=== PATIENT | female | born 1935 | race Caucasian/White ===

== ENCOUNTER → 2016-08-11 | Outpatient (CLI) | payer OTHER ==
[~2016-08-11] MED LIST: CARV6.25 PO; CLOP1TAB5 PO; HYDR25TA5 PO; INSU0.01 SC; INSUINJ14 SC; LEVO125T5 PO; LOVA40TA3 PO; PLN25 PO; PRED1SUS3 OPR; TYLOTC500 PO; ULT/50 PO; WARF-246 PO
[2016-08-11 13:41] LABS: CALCIUM 9.5 mg/dl (8.5-10.1)
[2016-08-11 13:48] LABS: ALB/GLOB RATIO 1.3 (0.9-2); ALKALINE PHOSPHATASE 57 U/L (45-117); ALT/SGPT 25 U/L (12-78); AST/SGOT 20 U/L (15-37); BLOOD UREA NITROGEN 22 mg/dl (7-18); BUN/CREATININE RATIO 18.4 (10-20); CARBON DIOXIDE 27 mmol/L (21-32); CHLORIDE 104 mmol/L (98-107); CHOLESTEROL 173 mg/dl (0-200); GLUCOSE 214 mg/dl (70-99); POTASSIUM 3.6 mmol/L (3.5-5.1); SODIUM 140 mmol/L (136-145); TRIGLYCERIDES 323 mg/dl (0-150); VERY LOW DENSITY LIPOPROT CALC 65 mg/dl
[2016-08-11 13:56] LABS: CHOLESTEROL/HDL RATIO 4.7; HDL CHOLESTEROL 37 mg/dl; LDL CHOLESTEROL CALCULATED 71 mg/dl; THYROID STIMULATING HORMONE 0.415 uIu/ml (0.300-4.500)
[2016-08-11 14:08] LABS: RATIO 10.1 mcg/mg (0-30.0)
[2016-08-11 14:14] LABS: ESTIMATED AVERAGE GLUCOSE 214 mg/dl; HA1C FLAG Normal (Normal)
== END | disposition home or self-care (01) ==
LOC: C.LABPBG 08:52
PROVIDERS: ATTEND Internal Medicine
DX: E11.49 Type 2 diabetes mellitus with other diabetic neurological complication (principal); E03.9 Hypothyroidism, unspecified; E78.5 Hyperlipidemia, unspecified; N18.3 Chronic kidney disease, stage 3 (moderate); E11.22 Type 2 diabetes mellitus with diabetic chronic kidney disease

== ENCOUNTER → 2016-11-17 | Outpatient (CLI) | payer OTHER ==
[~2016-11-17] MED LIST changes: +LEVO125T4 PO; -LEVO125T5 PO
[2016-11-17 13:30] LABS: ESTIMATED AVERAGE GLUCOSE 200 mg/dl; HA1C FLAG Normal (Normal)
== END | disposition home or self-care (01) ==
LOC: C.LABPBG 11:30
PROVIDERS: ATTEND Internal Medicine
DX: E55.9 Vitamin D deficiency, unspecified (principal); E11.49 Type 2 diabetes mellitus with other diabetic neurological complication; I63.9 Cerebral infarction, unspecified; R32 Unspecified urinary incontinence; N30.90 Cystitis, unspecified without hematuria

== ENCOUNTER → 2017-01-31 | Outpatient (CLI) | payer OTHER ==
[2017-01-31 12:14] LABS: BASO % 0.4 %; BASO ABS # 0.03 K/uL (0-0.2); COMPLETE YES; EOS % 6.2 %; IG% 0.1 %; LYMPH ABS # 2.15 K/uL (1.2-3.4); MEAN CELL VOLUME 89.9 fL (80-100); MEAN CORPUSCULAR HEMOGLOBIN 28.8 pg (25-34); MEAN PLATELET VOLUME 9.6 fL (7.4-10.4); MONO % 6.3 %; PLATELET COUNT 264 K/uL (130-400); RED BLOOD COUNT 4.45 M/uL (4.2-5.4); WHITE BLOOD COUNT 7.96 K/uL (4.8-10.8)
[2017-01-31 12:23] LABS: URINE APPEARANCE TURBID (CLEAR); URINE BILIRUBIN NEG (NEG); URINE COLOR YELLOW; URINE EPITHELIAL CELL AUTO >30 /lpf (0-5); URINE NITRITE NEG (NEG); URINE SPECIFIC GRAVITY 1.024 (1.000-1.030); UROBILINOGEN NEG (NEG)
[2017-01-31 12:29] LABS: MANUAL MICROSCOPIC REQUIRED? NO; REVIEW REQ? YES
[2017-01-31 13:02] LABS: BLOOD UREA NITROGEN 27 mg/dl (7-18); BUN/CREATININE RATIO 19.4 (10-20); CALCIUM 9.3 mg/dl (8.5-10.1); CARBON DIOXIDE 26 mmol/L (21-32); CHLORIDE 105 mmol/L (98-107); GLUCOSE 232 mg/dl (70-99); POTASSIUM 3.5 mmol/L (3.5-5.1); SODIUM 140 mmol/L (136-145)
[2017-01-31 13:12] LABS: THYROID STIMULATING HORMONE 0.605 uIu/ml (0.300-4.500)
== END | disposition home or self-care (01) ==
LOC: C.LABPBG 10:41
PROVIDERS: ATTEND Internal Medicine
DX: E03.9 Hypothyroidism, unspecified (principal); E11.49 Type 2 diabetes mellitus with other diabetic neurological complication; R32 Unspecified urinary incontinence

== ENCOUNTER → 2017-06-22 | Outpatient (CLI) | payer OTHER ==
[~2017-06-22] MED LIST changes: -LEVO125T4 PO; +LEVO125T5 PO
[2017-06-22 13:05] LABS: HEMOGLOBIN A1C 7.2 % (4.5-5.6)
[2017-06-22 13:13] LABS: ALT/SGPT 25 U/L (12-78); BLOOD UREA NITROGEN 23 mg/dl (7-18); CALCIUM 9.4 mg/dl (8.5-10.1); CARBON DIOXIDE 29 mmol/L (21-32); CHOLESTEROL 168 mg/dl (0-200); CREATININE 1.34 mg/dl (0.60-1.20); GLUCOSE 122 mg/dl (70-99); POTASSIUM 3.5 mmol/L (3.5-5.1); SODIUM 141 mmol/L (136-145)
[2017-06-22 13:17] LABS: AST/SGOT 18 U/L (15-37); LDL CHOLESTEROL CALCULATED 90 mg/dl
== END | disposition home or self-care (01) ==
LOC: C.LABPBG 09:33
PROVIDERS: ATTEND Internal Medicine
DX: E11.49 Type 2 diabetes mellitus with other diabetic neurological complication (principal); N18.3 Chronic kidney disease, stage 3 (moderate); E78.5 Hyperlipidemia, unspecified; E55.9 Vitamin D deficiency, unspecified

== ENCOUNTER → 2017-07-03 | Outpatient (CLI) | payer OTHER | END | disposition home or self-care (01) | LOC: C.LAB 08:40 | PROVIDERS: ATTEND Pain Medicine Interventional Pain Medicine | DX: Z51.81 Encounter for therapeutic drug level monitoring (principal); Z79.01 Long term (current) use of anticoagulants ==

== ENCOUNTER → 2017-09-12 | Outpatient (CLI) | payer OTHER ==
[~2017-09-12] MED LIST changes: +ALLO300T2 PO; +BISA-16 PO; +FELO2.5T PO; +HYDR12.55 PO; -HYDR25TA5 PO; -INSU0.01 SC; +INSU70IN2 SC; -INSUINJ14 SC; -LEVO125T5 PO; +LEVO137T3 PO; +LISI-729 PO; -PLN25 PO; -PRED1SUS3 OPR; +REGADENOSON 0.4 MG/5 ML SYR ONE; +WARF4TAB8 PO; +WARF5TAB7 PO
--- NOTE | 2017-09-12 19:22 | MYOCARDIAL PERFUSION SCAN ---
STUDY REQUESTED BY: Torsten Reid PA-C STUDY TITLE: ONE-DAY NUCLEAR MEDICINE TECHNETIUM-99M CARDIOLITE MYOCARDIAL PERFUSION SCAN BASELINE ECHOCARDIOGRAM: Sinus bradycardia at a ventricular rate of 54 with left bundle branch block. STRESS EKG: Heart rate berenice from 54 to 80 with Lexiscan. There were no Lexiscan-induced ST changes. Heart rate of 80 represented 57% of maximum predicted heart rate. Maximum blood pressure was 128/60. INDICATION: Left bundle branch block and preoperative evaluation. TECHNIQUE: For the stress portion of the study, 32.9 mCi of technetium-99m Cardiolite IV was injected at 9:25 on 09/12/2017. Thirty minutes following the injection, imaging of the heart was performed in multiple projections. For the rest portion of the study, 10.6 mCi of technetium-99m Cardiolite was injected IV at 7:40. One hour following the injection, imaging of the heart was performed in the same projection. FINDINGS: Rotating raw images were reviewed in detail. There was minimal vertical motion, more notable on stress than rest. There was positive gut/liver uptake impacting the inferior imaging border of the heart. There was a lateral breast shadow. There was no significant extracardiac pathologic uptake. The short axis, vertical long axis, and horizontal long axis images were reviewed in detail. There was no visual TID noted. There was a fixed mid anterior septal/inferior septal and apical septal perfusion defect. Perfusion defect was moderate in size, mild in severity. No significant reversibility or ischemia. Calculated end-diastolic volume was 73 mL. Calculated EF was 70%. There were no regional wall motion abnormalities. IMPRESSION: 1. Negative myocardial perfusion study for Lexiscan-induced ischemia. 2. Small septal fixed perfusion defect most consistent with conduction abnormality. 3. Normal left ventricular size and function with a calculated ejection fraction of 70%. 4. Nondiagnostic stress echocardiogram in the setting of inability to reach target heart rate.
== END | disposition home or self-care (01) ==
LOC: C.NUCL 06:52
PROVIDERS: ATTEND Physician Assistant Medical
DX: Z01.810 Encounter for preprocedural cardiovascular examination (principal); R94.31 Abnormal electrocardiogram [ECG] [EKG]; E11.9 Type 2 diabetes mellitus without complications; I44.7 Left bundle-branch block, unspecified

== ENCOUNTER → 2017-11-28 | Outpatient (CLI) | payer OTHER ==
[~2017-11-28] MED LIST changes: -REGADENOSON 0.4 MG/5 ML SYR ONE; +RXC5 PO; -WARF-246 PO
== END | disposition home or self-care (01) ==
LOC: C.LABSPEC 11:06
PROVIDERS: ATTEND Internal Medicine
DX: R39.9 Unspecified symptoms and signs involving the genitourinary system (principal); I63.9 Cerebral infarction, unspecified

== ENCOUNTER 2020-04-07 12:05 | Inpatient (IN) ==
[2020-04-07] MEDS ORDERED: fentaNYL citrate 100 MCG/2 ML VIAL IV ONE (12:31)
[2020-04-07] MEDS ORDERED: ONDANSETRON INJ 2 MG/ML 2 ML VIAL IV STA (12:31)
[2020-04-07] MEDS ORDERED: SODIUM CHLORIDE 0.9% 500 ML IV SCH (12:45)
[2020-04-07 13:08] LABS: Basophils # (auto) 0.03 K/uL (0-0.2); Basophils % (auto) 0.2 %; Eosinophils # (auto) 0.36 K/uL (0-0.5); Eosinophils % (auto) 1.8 %; Hematocrit (blood only) 39.2 % (37-47); Hemoglobin 12.8 g/dL (12.0-16.0); Immature Granulocytes # (auto) 0.04 K/uL (0.00-0.02); Immature Granulocytes % (auto) 0.2 %; Lymphocytes # (auto) 1.65 K/uL (1.2-3.4); Lymphocytes % (auto) 8.4 %; Mean Corpuscular Hemoglobin 29.6 pg (25-34); Mean Corpuscular Hgb Conc 32.7 g/dL (32-36); Mean Corpuscular Volume 90.5 fL (80-100); Mean Platelet Volume 9.6 fL (7.4-10.4); Monocytes # (auto) 0.87 K/uL (0.11-0.59); Monocytes % (auto) 4.4 %; Neutrophils # (auto) 16.62 K/uL (1.4-6.5); Platelet Count 256 K/uL (130-400); RDW Coefficient of Variation 15.5 % (11.5-14.5); RDW Standard Deviation 51.4 fL (36.4-46.3); Red Blood Count 4.33 M/uL (4.2-5.4); White Blood Count 19.57 K/uL (4.8-10.8)
[2020-04-07 13:24] LABS: Albumin Level 3.6 gm/dl (3.4-5.0); BUN Creatinine Ratio 18.1 (10-20); Calcium 8.9 mg/dl (8.5-10.1); Creatinine Clr Calc Pharmacy 30.3 ml/min; Est GFR (African American) 39.2; Est GFR (Non-African American) 33.8; Potassium 3.7 mmol/L (3.5-5.1)
[2020-04-07 13:30] LABS: Prothrombin Time 39.6 Seconds (9.0-12.0)
[2020-04-07 13:31] LABS: Albumin Globulin Ratio 0.9 (0.9-2); Bilirubin,Total 0.6 mg/dl (0.2-1); Globulin 3.8 gm/dl (2.5-4.0); Total Protein 7.4 gm/dl (6.4-8.2); Troponin I 0.067 ng/ml (0-0.045)
--- NOTE | 2020-04-07 13:35 | CT Scan Report ---
CT OF THE HEAD WITHOUT CONTRAST CLINICAL HISTORY: fall, vertigo COMPARISON STUDY: Head CT and MRI of the brain July 04, 2014. CT DOSE: 614.27 mGy.cm TECHNIQUE: Helical axial images of the head were obtained without IV contrast. Automated exposure con trol was utilized for the study. A dose lowering technique was utilized adhering to the principles o f ALARA. FINDINGS: No acute intracranial hemorrhage, midline shift or mass effect is present. A few old infarc ts remain unchanged. The ventricular system is unremarkable. The basal cisterns are patent. No extra- axial collections are present. There are no findings to suggest acute dural sinus thrombosis or acute territorial infarct. No significant calvarial abnormalities are present. Visualized portions of the sinuses and mastoid air cells are clear. IMPRESSION: 1. No acute intracranial findings. 2. No calvarial fracture. ACT 112: Negative or not required by law. Electronically signed by: Jamie Hernandez M.D. 04/07/2020 1:34 PM
--- NOTE | 2020-04-07 14:00 | XRay Report ---
SINGLE VIEW CHEST CLINICAL HISTORY: Fall. FINDINGS: An AP, portable, upright chest radiograph is compared to study dated 07/04/2014. The examina tion is degraded by portable technique and apical lordotic positioning. The heart is top normal for p rojection. Chronic interstitial thickening is similar to previous. There is bibasilar scarring/atelec tasis. No airspace consolidation or large pleural effusion is identified No pneumothorax is seen. The skeletal structures are osteopenic. There is a comminuted fracture of the right humeral head and nec k. The humeral head is inferiorly subluxed at the glenohumeral articulation. IMPRESSION: 1. No acute cardiopulmonary abnormality. 2. Comminuted fracture of the right humeral head and neck. ACT 112: Negative or not required by law. Electronically signed by: James Aguiar M.D. 04/07/2020 1:59 PM
--- NOTE | 2020-04-07 14:00 | XRay Report ---
XR knee LT 1 or 2V routine CLINICAL HISTORY: L knee pain after fall COMPARISON: None. DISCUSSION: There are degenerative changes with narrowing of the medial joint compartment. No acute f ractures or dislocations are visualized. There is mild soft tissue swelling. IMPRESSION: 1. Degenerative change 2. No acute fractures ACT 112: Negative or not required by law. Electronically signed by: Paul Lamb M.D. 04/07/2020 1:58 PM
--- NOTE | 2020-04-07 14:04 | XRay Report ---
XR shoulder RT min 2V routine CLINICAL HISTORY: R shoulder pain after fall COMPARISON STUDY: None. FINDINGS: There is an impacted right humeral neck fracture with a slightly comminuted and displaced f racture extending through the greater tuberosity. This demonstrates up to 11 mm of lateral displaceme nt. The right clavicle is intact. There is right shoulder soft tissue swelling. Mild inferior subluxa tion of the humeral head in relation to the glenoid without dislocation. IMPRESSION: Right humeral neck/head fracture as described above. There is mild inferior subluxation of the humeral head in relation to the glenoid without dislocation. ACT 112: Negative or not required by law. Electronically signed by: Jamarcus Salas M.D. 04/07/2020 2:03 PM
[2020-04-07] MEDS ORDERED: MAGNESIUM HYDROXIDE SUSP 30 ML UDC PO PRN (15:38)
[2020-04-07] MEDS ORDERED: POLYETHYLENE (MIRALAX) 17 GM PACK PO PRN (15:38)
[2020-04-07] MEDS ORDERED: ACETAMINOPHEN 325 MG TAB PO PRN (15:38)
[2020-04-07] MEDS ORDERED: GLUCOSE 40% GEL 15 GM TUBE PO PRN (15:58)
[2020-04-07] MEDS ORDERED: DEXTROSE 50% 50 ML SYRINGE IV PRN (15:58)
[2020-04-07] MEDS ORDERED: GLUCAGON FOR INJ 1 MG VIAL SQ PRN (15:58)
[2020-04-07] MEDS ORDERED: GLUCOSE 10 TABS/TUBE PO PRN (15:58)
[2020-04-07] MEDS ORDERED: CARBOHYDRATES FOR HYPOGLYCEMIA PO PRN (15:58)
--- NOTE | 2020-04-07 16:12 | History & Physical Report ---
Date of Service April 07, 2020 Assessment & Plan (1) NSTEMI (non-ST elevated myocardial infarction): * Patient with no significant underlying cardiac disease. * Will trend troponins. * A.m. echocardiogram preoperatively. * Concerns for possible syncopal episode with leaked troponins. * Appreciate cardiology consultation. (2) Syncope: * Patient with loss of consciousness during event today. * Concerning with elevated troponin. * A.m. echocardiogram. * Monitor on telemetry for ectopy. * Patient did have small run of V. tach while at bedside. We will continue to assess for any other dysrhythmias. (3) Proximal humerus fracture: * Will place in shoulder sling. * Orthopedic surgery to evaluate the patient for surgical intervention. * Pain control ordered. 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 (5) Controlled type 2 diabetes mellitus with kidney complication, with long-term current use of insulin: * Sliding scale insulin. Appreciate pharmacy consultation for glycemic management. (6) Chronic kidney disease, stage 3: * Avoid nephrotoxic agents. * Monitor electrolytes. Replace appropriately. (7) Hyperlipidemia: * Continue home medications as tolerated. (8) Hypertension: * Medications as tolerated. (9) Hypothyroidism: * Continue home dosing of levothyroxine. (10) Left bundle-branch block: * Appears unchanged from prior EKGs. History of Present Illness Primary Care Provider: Devin Petty MD Patient is an 84-year-old female with a significant past medical history of CVA anticoagulated on Coumadin, insulin-dependent diabetes, chronic left bundle branch block, hypothyroidism, hypertension, hyperlipidemia, CKD 3. Patient lives at home independently and does have help with ADLs from her adult children. 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 Daughter reports that she is very particular with her clientele and wears a mask as well as facial during each interaction. She encourages all of her clients to wear facemasks as well. To her knowledge, she has had no recent COVID-19 positive contacts. Patient unfortunately has been experiencing vertiginous-like symptoms with spinning sensation which is been worse with changes in position. She reports that these episodes quickly resolve and she is able to continue on without issue. She reports that symptoms are mostly brought on by changes in position as well as turning her head quickly. She had been performing exercises with her daughter with some relief of symptoms. Earlier today, while performing her morning duties, she reports that she was walking through her kitchen when she threw a trash away and reports feeling as a sensation that she was going to pass out. Her daughter was able to catch her head so she did not strike her head. She reports remembering the events before and after. There was no postictal state. Patient was initially taken to an outpatient clinic where he was directed to the emergency department with imaging capabilities. Upon evaluation in the emergency department, the patient is awake, alert, and oriented. She reports that she is having moderate pain with attempted movement of the RIGHT shoulder. She reports remember the entire event from today other than when she passed out. Patient denies any presyncope chest pain, palpitations, shortness of breath, nausea, or diaphoresis. Presently, the patient offers no complaints other than right shoulder pain. Allergies Allergy/AdvReac Type Severity Reaction Status Date / Time No Known Drug Allergies Allergy Verified 04/07/20 14:19 Home Medications Medication Instructions Recorded Confirmed Type insulin syringe-needle U-100 0.5 #10 ea 12/06/18 03/03/20 History mL 31 gauge x 5/16" lancing device with lancets kit #1 ea 12/06/18 03/03/20 History OneTouch Delica Lancets 33 gauge #300 ea NS 01/23/19 03/03/20 Rx OneTouch Ultra Blue Test Strip #300 ea NS 01/23/19 03/03/20 Rx allopurinol 100 mg tablet 100 mg PO DAILY #90 tab 12/26/19 04/07/20 Rx amlodipine 2.5 mg tablet 2.5 mg PO DAILY #90 tab 12/26/19 04/07/20 Rx carvedilol 6.25 mg tablet 6.25 mg PO BID #180 tab 12/26/19 04/07/20 Rx clopidogrel 75 mg tablet 75 mg PO DAILY #90 tab 12/26/19 04/07/20 Rx lisinopril 2.5 mg tablet 2.5 mg PO DAILY #90 tab 12/26/19 04/07/20 Rx lovastatin 40 mg tablet 40 mg PO DAILY #90 tab 12/26/19 04/07/20 Rx nitrofurantoin macrocrystal 50 mg 50 mg PO HS #90 cap 02/18/20 04/07/20 Rx capsule insulin human U-100 NPH-regulr 45 - 50 unit SUBCUT BID #6 ml 03/03/20 04/07/20 History 70-30 mix 100 unit/mL subcutaneous susp omeprazole 20 mg capsule,delayed 20 mg PO DAILY #90 cap 03/18/20 04/07/20 Rx release hydrochlorothiazide 12.5 mg tablet 12.5 mg PO DAILY #90 tab 03/24/20 04/07/20 Rx levothyroxine 137 mcg tablet 137 mcg PO .COMPLEX #90 tab 03/24/20 04/07/20 Rx warfarin [Jantoven] 5 mg PO UD 04/07/20 04/07/20 History Past Med/Surg History Medical History Acute CVA (cerebrovascular accident) Acute CVA (cerebrovascular accident) Arthritis, degenerative Cerebral infarction, unspecified Chronic anticoagulation Chronic kidney disease, stage 3 Controlled type 2 diabetes mellitus with kidney complication, with long-term current use of insulin Esophageal reflux Hyperlipidemia Hypertension Hypothyroidism Left bundle-branch block Left ventricular hypertrophy Lumbar spine pain Spinal stenosis, 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 Vitamin D deficiency Surgical History Hx of laminectomy Family History Father Lung disease Mother Diabetes Denies family history of Ovarian cancer Prostate cancer Myocardial infarction Breast cancer Lung cancer Colorectal cancer Stroke Social History Smoking Status: Never smoker Second Hand Exposure: No; Hx Alcohol Use: No Hx Substance Use: No Preferred Language: Sammarinese Hearing Ability: Use of Hearing Aid marital status: / Current Living Situation: Family current occupational status: retired Feels Safe at Home: Yes Dental Care, Regularly: Yes Physical Activity Frequency: 3-4 Times per Week Seatbelt Use: always Sunscreen Use: Yes Review of Systems Review of Systems: A complete 10 point review of systems was reviewed with the patient with pertinent positives and negatives as per history of present illness. All else were negative. Physical Exam Physical Exam: VITAL SIGNS - Vital signs and nursing notes were reviewed. GENERAL - 84-year-old female appearing her stated age who is in no acute distress. Communicates well with provider and answers questions appropriately. SKIN - Without rashes. HEAD - NC/AT. EYES - PERRL with EOMI bilaterally. Sclera anicteric. EARS - No deformities of external structures noted on gross examination bilaterally. NOSE - Midline and without cyanosis. MOUTH/OROPHARYNX - Without perioral cyanosis. Buccal mucosa pink and moist and without leukoplakia. NECK - Neck with FROM. No nuchal rigidity. LUNGS - Chest wall symmetric without accessory muscle use, intercostals retractions, or central cyanosis. Normal vesicular breath sounds CTA B/L. No wheezes, rales, or rhonchi appreciated. CARDIAC - RRR with S1/S2. No murmur, rubs, or gallops appreciated. ABDOMEN - Abdominal contour obese without pulsations or visible masses. BS normoactive all four quadrants. No tenderness, palpable masses, hepatosplenomegaly, or ascites noted. EXTREMITIES - RIGHT shoulder with TTP throughout. Decreased ROM. No pretibial edema present. +3/5 radial and dorsalis pedis pulses palpated throughout. NEUROLOGIC - Cranial nerves II through XII grossly intact. Sensory intact to light touch throughout. PSYCH - A&Ox3 and cooperates fully with examiner. Pt is very pleasant and interacts well with examiner. Results & Data Results & Data ([facility]) Vital Signs (Past 12 Hours) Vital Signs Temp Pulse Pulse Resp BP BP Pulse Ox 04/07/20 14:59 79 18 180/86 H 95 04/07/20 13:55 74 16 195/74 H 96 04/07/20 13:09 96 04/07/20 12:09 36.2 C L 77 18 166/84 H 93 Code Status & VTE Plan VTE Prophylaxis Plan VTE Prophylaxis will be ordered: Yes Supervising Physician Co-Signing Physician Notes Patient was seen and examined independently I discussed the case with Jeff BLOUNT I reviewed pertinent past medical social family history and also the plan of care and agree with the plan of care. 84-year-old female who fell at home after becoming lightheaded perhaps with short loss of consciousness sustaining a fracture to her right humerus which is comminuted and moderately displaced. Presentation she is a mildly elevated troponin at 0.078 she has no anginal symptoms or heart failure symptoms. She is supratherapeutic with her INR which she takes for history of CVA according to the patient. She is mildly hypomagnesemic and had a resultant short run of V. tach. Other risk factors include her diabetes and age however she is very functional for her age without anginal or heart failure symptoms once her INR is appropriate and echocardiogram is reviewed to make sure she does not have cardiomyopathy progression the surgery is likely expected Is no carotid bruit bruits or JVD Cardiac exam is regular without murmurs lungs are clear We will reverse her INR is in anticipation for surgery tomorrow we will replete her magnesium and unless her echocardiogram is significantly abnormal we will likely recommend she proceed to surgery Any exceptions will be noted below PG Care Time/CCT Total # of Minutes Spent Total Time Spent with Patient: Total time spent is greater than 50% in coordination of care (as documented) at patient's floor/unit and/or counseling patient: Coding Level of Care Code 76345 Initial Inpt Care Lvl 3 Diagnoses NSTEMI (non-ST elevated myocardial infarction) I21.4 Syncope R55 Proximal humerus fracture S42.209A prison (current) use of anticoagulants Z79.01 Controlled type 2 diabetes mellitus with kidney complication, with long-term current use of insulin E11.29; Z79.4 Chronic kidney disease, stage 3 N18.3 Hyperlipidemia E78.5 Hypertension I10 Hypothyroidism E03.9 Left bundle-branch block I44.7 Time Spent (min) 35
--- NOTE | 2020-04-07 16:19 | CT Scan Report ---
CT OF THE RIGHT SHOULDER WITHOUT CONTRAST CLINICAL HISTORY: fall, proximal humerus fracture COMPARISON STUDY: Right shoulder radiographs performed earlier today. TECHNIQUE: Axial images of the right shoulder were obtained without IV contrast. Sagittal and coronal reconstructions were viewed. Automated exposure control was utilized for the study. A dose lowering technique was utilized adhering to the principles of ALARA. FINDINGS: Alignment of the right acromioclavicular joint is anatomic. There is mild inferior subluxat ion of the right humeral head with respect to the glenoid. Note is made of an acute moderately commin uted moderately displaced right humeral head and neck fracture. Fracture extends through the greater tuberosity which is displaced 1.5 cm. There is adjacent edema/hemorrhage, as expected. No suspicious osseous lesions are noted. No additional fractures are identified on this examination. Ground glass o pacities within the right lungs favor atelectasis. No acute fracture is identified within visual port ions of the right-sided ribs. IMPRESSION: 1. Acute moderately comminuted displaced right humeral head and neck fracture. 2. Mild inferior subluxation of the right humeral head with relation to the glenoid without dislocati on. ACT 112: Negative or not required by law. Electronically signed by: Jamie Hernandez M.D. 04/07/2020 4:18 PM
--- NOTE | 2020-04-07 17:03 | Orthopedic Consultation ---
Date of Consultation April 07, 2020 Assessment & Plan (1) Proximal humerus fracture: Right proximal humerus fracture. I have discussed the case with Dr. Villagran. X-rays have been reviewed. He will also be reviewing the CT scan. Patient will require a right reverse total shoulder arthroplasty. She will obviously need medical clearance preoperatively. Her INR in 4 currently and will need to be brought down to at least 1.5 or less for surgery. Plan for the OR for the procedure noted when okay with medicine service and INR reduced. We will make her n.p.o. after midnight in case she is cleared for the OR tomorrow. History of Present Illness Reason for Consultation: Right proximal humerus fracture History of Present Illness Patient is an 84-year-old female with a significant past medical history of CVA anticoagulated on Coumadin, insulin-dependent diabetes, chronic left bundle branch block, hypothyroidism, hypertension, hyperlipidemia, CKD 3. Patient lives at home alone but has help from her children regularly. 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 This morning she apparently had gone to the kitchen to throwing some trash. At that point she began to feel like she was going to pass out. Her daughter was with her and was able to catch her and hold her head as she was falling. She did not hit her head. She did not lose consciousness. She remembers the fall before and after. She had moderate pain in her right shoulder. Was brought to the emergency room and was found that she had a proximal humerus fracture. Currently she is awake and alert. She states that she is still having some pain in her right shoulder due to the fracture but otherwise has no other complaints. We have been asked to see her for her right proximal humerus fracture. Allergies Allergy/AdvReac Type Severity Reaction Status Date / Time No Known Drug Allergies Allergy Verified 04/07/20 14:19 Home Medications Medication Instructions Recorded Confirmed Type insulin syringe-needle U-100 0.5 #10 ea 12/06/18 03/03/20 History mL 31 gauge x 5/16" lancing device with lancets kit #1 ea 12/06/18 03/03/20 History OneTouch Delica Lancets 33 gauge #300 ea NS 01/23/19 03/03/20 Rx OneTouch Ultra Blue Test Strip #300 ea NS 01/23/19 03/03/20 Rx allopurinol 100 mg tablet 100 mg PO DAILY #90 tab 12/26/19 04/07/20 Rx amlodipine 2.5 mg tablet 2.5 mg PO DAILY #90 tab 12/26/19 04/07/20 Rx carvedilol 6.25 mg tablet 6.25 mg PO BID #180 tab 12/26/19 04/07/20 Rx clopidogrel 75 mg tablet 75 mg PO DAILY #90 tab 12/26/19 04/07/20 Rx lisinopril 2.5 mg tablet 2.5 mg PO DAILY #90 tab 12/26/19 04/07/20 Rx lovastatin 40 mg tablet 40 mg PO DAILY #90 tab 12/26/19 04/07/20 Rx nitrofurantoin macrocrystal 50 mg 50 mg PO HS #90 cap 02/18/20 04/07/20 Rx capsule insulin human U-100 NPH-regulr 45 - 50 unit SUBCUT BID #6 ml 03/03/20 04/07/20 History 70-30 mix 100 unit/mL subcutaneous susp omeprazole 20 mg capsule,delayed 20 mg PO DAILY #90 cap 03/18/20 04/07/20 Rx release hydrochlorothiazide 12.5 mg tablet 12.5 mg PO DAILY #90 tab 03/24/20 04/07/20 Rx levothyroxine 137 mcg tablet 137 mcg PO .COMPLEX #90 tab 03/24/20 04/07/20 Rx warfarin [Jantoven] 5 mg PO UD 04/07/20 04/07/20 History Patient History Medical History Acute CVA (cerebrovascular accident) Acute CVA (cerebrovascular accident) Arthritis, degenerative Cerebral infarction, unspecified Chronic anticoagulation Chronic kidney disease, stage 3 Controlled type 2 diabetes mellitus with kidney complication, with long-term current use of insulin Esophageal reflux Hyperlipidemia Hypertension Hypothyroidism Left bundle-branch block Left ventricular hypertrophy Lumbar spine pain Spinal stenosis, 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 Vitamin D deficiency Surgical History Hx of laminectomy Family History Father Lung disease Mother Diabetes Denies family history of Ovarian cancer Prostate cancer Myocardial infarction Breast cancer Lung cancer Colorectal cancer Stroke Social History Smoking Status: Never smoker Second Hand Exposure: No; Hx Alcohol Use: No Hx Substance Use: No Preferred Language: Citizen Of [place] Communication Ability: Effective Hearing Ability: Use of Hearing Aid Biomechanical 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 She is alert and oriented x3. He is having some pain in the right shoulder but is in no acute distress. She is pleasant and cooperative. Focusing the exam on the right upper extremity, she has some swelling of the right shoulder at this time and is tender on palpation. No attempts are made to take her through shoulder range of motion due to fracture. She is nontender on palpation of the right elbow and I can take her through gentle range of motion at this time without discomfort in the elbow. He has good range of motion of her right wrist and fingers. She has good boiling off winder strength. Left upper extremity is unaffected and she is nontender at the left shoulder elbow and wrist. She does complain of some left knee pain of which she has some swelling over the patella and a small area of ecchymosis. No active bleeding. He is mildly tender on palpation. She is able to go through gentle range of motion without difficulty again has some mild discomfort. Denies pain in her left hip or ankle and range of motion appears to be intact. There is no gross motor or sensory loss seen at this time. She denies any cervical, thoracic, lumbar pain at this time. Distal pulses are equal bilaterally of the upper and lower extremities. Results & Data ([facility]) Vital Signs (Past 12 Hours) Vital Signs Temp Pulse Pulse Resp BP BP Pulse Ox 04/07/20 16:54 74 18 176/89 H 97 04/07/20 14:59 79 18 180/86 H 95 04/07/20 13:55 74 16 195/74 H 96 04/07/20 13:09 96 04/07/20 12:09 36.2 C L 77 18 166/84 H 93 Diagnostic Findings Patient: GÓMEZ CHRISTINE Date: 04/07/20MR#: [id number]: [id number] RDAcct ID:[id number]: Date: 6City Zip: [place], [place] [address]Wpj: [id number]: EDSex: FRoom/Bed:Att Phy:Diagnosis: FELL INJURING RIGHT SHOULDER & KNEEPri Phy: Devin Petty, MDService Date: 04/07/20Fam Phy:Interpreting Phy: Jamie Hernandez MDAdmit Phy: Ordering Phy: Bren Canseco M.D. cc: ~ CT OF THE RIGHT SHOULDER WITHOUT CONTRAST CLINICAL HISTORY: fall, proximal humerus fracture COMPARISON STUDY: Right shoulder radiographs performed earlier today. TECHNIQUE: Axial images of the right shoulder were obtained without IV contrast. Sagittal and coronal reconstructions were viewed. Automated exposure control was utilized for the study. A dose lowering technique was utilized adhering to the principles of ALARA. FINDINGS: Alignment of the right acromioclavicular joint is anatomic. There is mild inferior subluxation of the right humeral head with respect to the glenoid. Note is made of an acute moderately comminuted moderately displaced right humeral head and neck fracture. Fracture extends through the greater tuberosity which is displaced 1.5 cm. There is adjacent edema/hemorrhage, as expected. No suspicious osseous lesions are noted. No additional fractures are identified on this examination. Ground glass opacities within the right lungs favor atelectasis. No acute fracture is identified within visual portions of the right-sided ribs. IMPRESSION: 1. Acute moderately comminuted displaced right humeral head and neck fracture. 2. Mild inferior subluxation of the right humeral head with relation to the glenoid without dislocation. XR knee LT 1 or 2V routine CLINICAL HISTORY: L knee pain after fall COMPARISON: None. DISCUSSION: There are degenerative changes with narrowing of the medial joint compartment. No acute fractures or dislocations are visualized. There is mild soft tissue swelling. IMPRESSION: 1. Degenerative change 2. No acute fractures
[2020-04-07 17:26] LABS: Magnesium 1.6 mg/dl (1.8-2.4); Phosphorus 2.7 mg/dl (2.5-4.9); Thyroid Stimulating Hormone 2.88 uIu/ml (0.300-4.500); Troponin I 0.078 ng/ml (0-0.045)
[2020-04-07] MEDS ORDERED: PHARMACY GLYCEMIC MGMT CONSULT PRN (17:29)
[2020-04-07] MEDS ORDERED: PHYTONADIONE 5 MG TAB PO STA (17:32)
--- NOTE | 2020-04-07 17:33 | Electrocardiogram Report ---
Test Reason : Blood Pressure : / mmHG Vent. Rate : 072 BPM Atrial Rate : 072 BPM P-R Int : 212 ms QRS Dur : 152 ms QT Int : 450 ms P-R-T Axes : 052 -22 133 degrees QTc Int : 492 ms Sinus rhythm with 1st degree A-V block Left bundle branch block Abnormal ECG When compared with ECG of 24-AUG-2017 14:03, Questionable change in QRS axis Confirmed by David Renee ([id number]) on 04/07/2020 5:32:55 PM Referred By: REFERRED SELF Confirmed By:David Renee
[2020-04-07] MEDS: oxyCODONE HCL IR 5 MG TAB (IMMEDIATE RELEASE) PO PRN (17:55)
--- NOTE | 2020-04-07 18:04 | Emergency Department Note ---
History of Present Illness General Chief complaint: Fall Stated complaint: FELL INJURING RIGHT SHOULDER & KNEE Source: patient, EMS and RN notes reviewed Mode of arrival: ambulatory Limitations: no limitations History of Present Illness Provider complaint: Vertigo x5 days, fall, right shoulder pain Maximum Pain Intensity: 8 This patient is an 84-year-old female who presents to the emergency department with complaints of a fall today. She states she was in the kitchen and walked to the garbage can. She became dizzy and lost her footing. She began to fall but her daughter caught her head before she hit the ground. Patient complains of right shoulder pain and left knee pain. She states she had to lay on the floor until her grandson could come. They did call EMS for transport. Patient states she does have a history of vertigo and "takes a bunch of medications." Patient was uncertain if she takes blood thinning medication. She denies any chest pain but does states she was lightheaded prior to the fall. She denied any heart fluttering, nausea, vomiting, abdominal pain or diarrhea today. She does not believe she lost consciousness after the fall. Home Medications Medication Instructions Recorded Confirmed Type insulin syringe-needle U-100 0.5 #10 ea 12/06/18 03/03/20 History mL 31 gauge x 5/16" lancing device with lancets kit #1 ea 12/06/18 03/03/20 History OneTouch Delica Lancets 33 gauge #300 ea NS 01/23/19 03/03/20 Rx OneTouch Ultra Blue Test Strip #300 ea NS 01/23/19 03/03/20 Rx allopurinol 100 mg tablet 100 mg PO DAILY #90 tab 12/26/19 04/07/20 Rx amlodipine 2.5 mg tablet 2.5 mg PO DAILY #90 tab 12/26/19 04/07/20 Rx carvedilol 6.25 mg tablet 6.25 mg PO BID #180 tab 12/26/19 04/07/20 Rx clopidogrel 75 mg tablet 75 mg PO DAILY #90 tab 12/26/19 04/07/20 Rx lisinopril 2.5 mg tablet 2.5 mg PO DAILY #90 tab 12/26/19 04/07/20 Rx lovastatin 40 mg tablet 40 mg PO DAILY #90 tab 12/26/19 04/07/20 Rx nitrofurantoin macrocrystal 50 mg 50 mg PO HS #90 cap 02/18/20 04/07/20 Rx capsule insulin human U-100 NPH-regulr 45 - 50 unit SUBCUT BID #6 ml 03/03/20 04/07/20 History 70-30 mix 100 unit/mL subcutaneous susp omeprazole 20 mg capsule,delayed 20 mg PO DAILY #90 cap 03/18/20 04/07/20 Rx release hydrochlorothiazide 12.5 mg tablet 12.5 mg PO DAILY #90 tab 03/24/20 04/07/20 Rx levothyroxine 137 mcg tablet 137 mcg PO .COMPLEX #90 tab 03/24/20 04/07/20 Rx warfarin [Jantoven] 5 mg PO UD 04/07/20 04/07/20 History Allergies Allergy/AdvReac Type Severity Reaction Status Date / Time No Known Drug Allergies Allergy Verified 04/07/20 14:19 Past Med/Surg History Medical History Acute CVA (cerebrovascular accident) Acute CVA (cerebrovascular accident) Arthritis, degenerative Cerebral infarction, unspecified Chronic anticoagulation Chronic kidney disease, stage 3 Controlled type 2 diabetes mellitus with kidney complication, with long-term current use of insulin Esophageal reflux Hyperlipidemia Hypertension Hypothyroidism Left bundle-branch block Left ventricular hypertrophy Lumbar spine pain Spinal stenosis, 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 Vitamin D deficiency Surgical History Hx of laminectomy Family History Father Lung disease Mother Diabetes Denies family history of Ovarian cancer Prostate cancer Myocardial infarction Breast cancer Lung cancer Colorectal cancer Stroke Social History Smoking Status: Never smoker Second Hand Exposure: No; Hx Alcohol Use: No Hx Substance Use: No Preferred Language: Afghan Communication Ability: Effective Hearing Ability: Use of Hearing Aid Process Inspector Required: No Beliefs That Will Affect Care: None marital status: / Current Living Situation: Family current occupational status: retired Feels Safe at Home: Yes Dental Care, Regularly: Yes Physical Activity Frequency: 3-4 Times per Week Seatbelt Use: always Sunscreen Use: Yes Assistive Devices: Cane and Glasses Review of Systems See HPI for pertinent positives & negatives. and A total of 10 systems reviewed and were otherwise negative Physical Exam Vital Signs Vital Signs - 24 hr 04/07/20 12:09 04/07/20 13:09 04/07/20 13:55 Temperature 36.2 C L Temperature Source Oral Pulse Rate 77 Pulse Rate [Finger] 74 Respiratory Rate 18 16 Respiratory Effort / Characteristics Non-Labored Non-Labored Respiratory Depth Normal Normal Blood Pressure 166/84 H Blood Pressure [Left Arm] 195/74 H Blood Pressure Mean 111 Blood Pressure Mean [Left Arm] 114 Blood Pressure Position Sitting Pulse Oximetry 93 96 96 Oxygen Delivery Method Room Air Room Air Room Air Sepsis Recent Fever Within 48 Hours No Sepsis New/Unexplained Change in Mental Status No Sepsis Action Taken by Nursing No Action Required 04/07/20 14:59 Temperature Temperature Source Pulse Rate Pulse Rate [Finger] 79 Respiratory Rate 18 Respiratory Effort / Characteristics Non-Labored Respiratory Depth Normal Blood Pressure Blood Pressure [Left Arm] 180/86 H Blood Pressure Mean Blood Pressure Mean [Left Arm] 117 Blood Pressure Position Pulse Oximetry 95 Oxygen Delivery Method Room Air Sepsis Recent Fever Within 48 Hours Sepsis New/Unexplained Change in Mental Status Sepsis Action Taken by Nursing Vital signs reviewed. General: Chronically ill-appearing 84-year-old female, in no significant distress. HEENT: No scleral icterus, PERRLA, neck supple. Atraumatic. Cardiovascular: Regular rate and rhythm, no extra sounds. Pulmonary: Clear to auscultation bilaterally, normal work of breathing. Systolic ejection murmur Abdomen: Soft, nontender, nondistended, positive bowel sounds. Musculoskeletal: Atraumatic, no peripheral edema. Nontender to palpation over the cervical, thoracic and lumbar spine. Neurologic: Patient awake alert and answers questions appropriately regarding pe rson, place and recent events. Skin: Warm, dry, no rash Course Administered Medications Oxycodone HCl (Oxycodone Hcl Ir 5 Mg Tab (Immediate Release)) 5 mg PO Q8H PRN PRN Reason: Pain Stop: 04/21/20 16:08 Last Admin: 04/07/20 17:55 Dose: 5 mg Documented by: [id number] Discontinued Medications Fentanyl Citrate (Fentanyl Citrate 100 Mcg/2 Ml Vial) 25 mcg IV NOW ONE Stop: 04/07/20 12:32 Last Admin: 12/15/20 13:14 Dose: 25 mcg Documented by: [id number] Sodium Chloride (Nss) 500 mls @ 999 mls/hr IV .Q31M JEN Stop: 04/07/20 13:15 Last Infusion: 04/07/20 13:44 Dose: 0 mls/hr Documented by: [id number] Admin: 04/07/20 13:14 Dose: 999 mls/hr Documented by: [id number] Ondansetron HCl (Ondansetron Inj 2 Mg/Ml 2 Ml Vial) 4 mg IV NOW STA Stop: 04/07/20 12:32 Last Admin: 04/07/20 13:14 Dose: 4 mg Documented by: [id number] Medical Decision Making Differential Diagnosis Infection, dehydration, metabolic abnormality, hypo/hyperglycemia, electrolyte disturbance, anemia, hypoxia, cardiac sources, intracerebral event, toxicologic, neurologic, fracture, dislocation, contusion, strain as well as other pathologies. Medical Records Attestation: I reviewed the patient's medical records. Home Medications Current Medication List: was personally reviewed by me Laboratory Data Attestation: I reviewed the patient's lab results. Result diagrams: 04/07/20 12:43 04/07/20 12:43 Lab Results 04/07/20 04/07/20 04/07/20 Range/Units 12:43 12:43 12:43 WBC 19.57 H (4.8-10.8) K/uL RBC 4.33 (4.2-5.4) M/uL Hgb 12.8 (12.0-16.0) g/dL Hct 39.2 (37-47) % MCV 90.5 (80-100) fL MCH 29.6 (25-34) pg MCHC 32.7 (32-36) g/dL RDW Std Deviation 51.4 H (36.4-46.3) fL RDW Coeff of Lotus 15.5 H (11.5-14.5) % Plt Count 256 (130-400) K/uL MPV 9.6 (7.4-10.4) fL Immature Gran % (Auto) 0.2 % Neut % (Auto) 85.0 % Lymph % (Auto) 8.4 % [place] % (Auto) 4.4 % Eos % (Auto) 1.8 % Baso % (Auto) 0.2 % Neut # (Auto) 16.62 H (1.4-6.5) K/uL Lymph # (Auto) 1.65 (1.2-3.4) K/uL [place] # (Auto) 0.87 H (0.11-0.59) K/uL Eos # (Auto) 0.36 (0-0.5) K/uL Baso # (Auto) 0.03 (0-0.2) K/uL Immature Gran # (Auto) 0.04 H (0.00-0.02) K/uL PT 39.6 H (9.0-12.0) Seconds INR 4.0 H (0.9-1.1) Sodium 136 (136-145) mmol/L Potassium 3.7 (3.5-5.1) mmol/L Chloride 103 (98-107) mmol/L Carbon Dioxide 27 (21-32) mmol/L Anion Gap 6.0 (3-11) BUN 26 H (7-18) mg/dl Creatinine 1.42 H (0.6-1.2) mg/dl Est Cr Clr Drug Dosing 30.3 ml/min Est GFR ( Amer) 39.2 Est GFR (Non-Af Amer) 33.8 BUN/Creatinine Ratio 18.1 (10-20) Glucose 227 H (70-99) mg/dl Calcium 8.9 (8.5-10.1) mg/dl Total Bilirubin 0.6 (0.2-1) mg/dl AST 23 (15-37) U/L ALT 30 (12-78) U/L Alkaline Phosphatase 84 (45-117) U/L Troponin I 0.067 H* (0-0.045) ng/ml Total Protein 7.4 (6.4-8.2) gm/dl Albumin 3.6 (3.4-5.0) gm/dl Globulin 3.8 (2.5-4.0) gm/dl Albumin/Globulin Ratio 0.9 (0.9-2) SARS-CoV-2 Ag (Rapid) (Negative) 04/07/20 Range/Units 15:05 WBC (4.8-10.8) K/uL RBC (4.2-5.4) M/uL Hgb (12.0-16.0) g/dL Hct (37-47) % MCV (80-100) fL MCH (25-34) pg MCHC (32-36) g/dL RDW Std Deviation (36.4-46.3) fL RDW Coeff of Lotus (11.5-14.5) % Plt Count (130-400) K/uL MPV (7.4-10.4) fL Immature Gran % (Auto) % Neut % (Auto) % Lymph % (Auto) % [place] % (Auto) % Eos % (Auto) % Baso % (Auto) % Neut # (Auto) (1.4-6.5) K/uL Lymph # (Auto) (1.2-3.4) K/uL [place] # (Auto) (0.11-0.59) K/uL Eos # (Auto) (0-0.5) K/uL Baso # (Auto) (0-0.2) K/uL Immature Gran # (Auto) (0.00-0.02) K/uL PT (9.0-12.0) Seconds INR (0.9-1.1) Sodium (136-145) mmol/L Potassium (3.5-5.1) mmol/L Chloride (98-107) mmol/L Carbon Dioxide (21-32) mmol/L Anion Gap (3-11) BUN (7-18) mg/dl Creatinine (0.6-1.2) mg/dl Est Cr Clr Drug Dosing ml/min Est GFR ( Amer) Est GFR (Non-Af Amer) BUN/Creatinine Ratio (10-20) Glucose (70-99) mg/dl Calcium (8.5-10.1) mg/dl Total Bilirubin (0.2-1) mg/dl AST (15-37) U/L ALT (12-78) U/L Alkaline Phosphatase (45-117) U/L Troponin I (0-0.045) ng/ml Total Protein (6.4-8.2) gm/dl Albumin (3.4-5.0) gm/dl Globulin (2.5-4.0) gm/dl Albumin/Globulin Ratio (0.9-2) SARS-CoV-2 Ag (Rapid) Negative (Negative) Imaging Data Radiologist's Impression: SINGLE VIEW CHEST CLINICAL HISTORY: Fall. FINDINGS: An AP, portable, upright chest radiograph is compared to study dated 07/04/2014. The examination is degraded by portable technique and apical lordotic positioning. The heart is top normal for projection. Chronic interstitial thickening is similar to previous. There is bibasilar scarring/atelectasis. No airspace consolidation or large pleural effusion is identified No pneumothorax is seen. The skeletal structures are osteopenic. There is a comminuted fracture of the right humeral head and neck. The humeral head is inferiorly subluxed at t he glenohumeral articulation. IMPRESSION: 1. No acute cardiopulmonary abnormality. 2. Comminuted fracture of the right humeral head and neck. ACT 112: Negative or not required by law. Electronically signed by: James Aguiar M.D. 04/07/2020 1:59 PM Dictated: 04/07/20 1358Transcribed: 04/07/[address] OF THE HEAD WITHOUT CONTRAST CLINICAL HISTORY: fall, vertigo COMPARISON STUDY: Head CT and MRI of the brain July 04, 2014. CT DOSE: 614.27 mGy.cm TECHNIQUE: Helical axial images of the head were obtained without IV contrast. Automated exposure control was utilized for the study. A dose lowering technique was utilized adhering to the principles of ALARA. FINDINGS: No acute intracranial hemorrhage, midline shift or mass effect is present. A few old infarcts remain unchanged. The ventricular system is unremarkable. The basal cisterns are patent. No extra-axial collections are present. There are no findings to suggest acute dural sinus thrombosis or acute territorial infarct. No significant calvarial abnormalities are present. Visualized portions of the sinuses and mastoid air cells are clear. IMPRESSION: 1. No acute intracranial findings. 2. No calvarial fracture. ACT 112: Negative or not required by law. Electronically signed by: Jamie Hernandez M.D. 04/07/2020 1:34 PM Dictated: 04/07/20 1331Transcribed: 04/07/20 1331 XR knee LT 1 or 2V routine CLINICAL HISTORY: L knee pain after fall COMPARISON: None. DISCUSSION: There are degenerative changes with narrowing of the medial joint compartment. No acute fractures or dislocations are visualized. There is mild soft tissue swelling. IMPRESSION: 1. Degenerative change 2. No acute fractures ACT 112: Negative or not required by law. Electronically signed by: Paul Lamb M.D. 04/07/2020 1:58 PM Dictated: 04/07/20 1358Transcribed: 04/07/20 1358 XR shoulder RT min 2V routine CLINICAL HISTORY: R shoulder pain after fall COMPARISON STUDY: None. FINDINGS: There is an impacted right humeral neck fracture with a slightly comminuted and displaced fracture extending through the greater tuberosity. This demonstrates up to 11 mm of lateral displacement. The right clavicle is intact. There is right shoulder soft tissue swelling. Mild inferior subluxation of the humeral head in relation to the glenoid without dislocation. IMPRESSION: Right humeral neck/head fracture as described above. There is mild inferior subluxation of the humeral head in relation to the glenoid without dislocation. ACT 112: Negative or not required by law. Electronically signed by: Jamarcus Salas M.D. 04/07/2020 2:03 PM Dictated: 04/07/20 140Transcribed: 04/07/201401 CT OF THE RIGHT SHOULDER WITHOUT CONTRAST CLINICAL HISTORY: fall, proximal humerus fracture COMPARISON STUDY: Right shoulder radiographs performed earlier today. TECHNIQUE: Axial images of the right shoulder were obtained without IV contrast. Sagittal and coronal reconstructions were viewed. Automated exposure control was utilized for the study. A dose lowering technique was utilized adhering to the principles of ALARA. FINDINGS: Alignment of the right acromioclavicular joint is anatomic. There is mild inferior subluxation of the right humeral head with respect to the glenoid. Note is made of an acute moderately comminuted moderately displaced right humeral head and neck fracture. Fracture extends through the greater tuberosity which is displaced 1.5 cm. There is adjacent edema/hemorrhage, as expected. No suspicious osseous lesions are noted. No additional fractures are identified on this examination. Ground glass opacities within the right lungs favor atelectasis. No acute fracture is identified within visual portions of the right-sided ribs. IMPRESSION: 1. Acute moderately comminuted displaced right humeral head and neck fracture. 2. Mild inferior subluxation of the right humeral head with relation to the glenoid without dislocation. ACT 112: Negative or not required by law. Electronically signed by: Jamie Hernandez M.D. 04/07/2020 4:18 PM Dictated: 04/07/20 1612Transcribed: 04/07/201611 ECG Data Attestation: I personally reviewed and interpreted this ECG as follows: Indication: + weakness Rate (beats per minute): 72 Rhythm: + sinus rhythm ECG Intervals/blocks: + First degree AV block, + Left bundle branch block and + Prolonged QT (492) ECG ST segments: + Normal ST segments ECG Findings: no PACs and no PVCs Blood Pressure Blood Pressure Findings: Elevated blood pressure Blood Pressure Disposition: further management by hospitalist ROMAN Dent This patient was evaluated and appeared to be in no significant distress. IV access was obtained and laboratory work was drawn. Patient was medicated with IV fentanyl and Zofran for pain. An order for cardiac monitoring was placed and the patient is noted to be in a sinus rhythm with a first-degree AV block. Patient is noted to have a left bundle branch block. Patient's laboratory work is fairly reassuring with the exception of an elevated WBC of 19.57 and a troponin of 0.06. At this time it is attributed to a stress mediated event. Patient is anticoagulated and has an INR of 4.0. There is no evidence of intracranial hemorrhage on head CT. Chest x-ray is negative, x-ray of the right shoulder reveals a fracture with likely subluxation. [facility] and consultation with Hari Pettit PA-C was placed. He stated that Dr. Boucher had reviewed the films and request a shoulder CT. I did speak with the patient's daughter regarding the findings. She is aware of the plan for admission and agrees with consultation with orthopedic surgery. Patient will need to be medically managed and the hospitalist service was consulted for admission. Impression & Plan Closed fracture of head of right humerus, Fall, Elevated troponin Discharge Plan Visit Data Chief Complaint: Fall Stated Complaint: FELL INJURING RIGHT SHOULDER & KNEE ED Provider: Bren Canseco Discharge Problem: Closed fracture of head of right humerus, Fall, Elevated troponin Patient Disposition: Admitted As Inpatient Discharge Instructions Interventions: ED Discharge Assessment Last Done: 04/07/20 17:03 Discharge Problem: Closed fracture of head of right humerus Qualifiers: Encounter type: initial encounter Qualified Code(s): S42.291A - Other displaced fracture of upper end of right humerus, initial encounter for closed fracture Fall Qualifiers: Encounter type: initial encounter Qualified Code(s): W19.XXXA - Unspecified fall, initial encounter
[2020-04-07] MEDS: MAGNESIUM SULFATE / D5W 1 GM/100 ML BAG IV SCH ×2 (18:08→19:52)
[2020-04-07] MEDS: NSS + 20MEQ KCL 20 MEQ/1,000 ML BAG IV SCH (18:08)
[2020-04-07] MEDS ORDERED: INSULIN HUMAN NPH SC ONE (19:00)
[2020-04-07] MEDS: INSULIN ASPART 100 UNITS/ML 3 ML PEN SC SCH ×2 (19:45→21:42)
[2020-04-07] MEDS: nitrofurantoin macrocrystaL 50 MG CAP PO SCH (21:49)
[2020-04-07] MEDS: carvediloL 6.25 MG TAB PO SCH (21:49)
[2020-04-08] MEDS: INSULIN ASPART 100 UNITS/ML 3 ML PEN SC SCH ×6 (00:20→21:27)
[2020-04-08] MEDS: oxyCODONE HCL IR 5 MG TAB (IMMEDIATE RELEASE) PO PRN ×3 (02:59→20:08)
[2020-04-08 04:49] LABS: INR 2.5 (0.9-1.1); Prothrombin Time 25.2 Seconds (9.0-12.0)
[2020-04-08] MEDS: LEVOTHYROXINE SODIUM 137 MCG TABLET PO SCH (06:11)
[2020-04-08 06:12] LABS: Estimated Average Glucose 166 mg/dl; Hemoglobin A1C 7.4 % (4.5-5.6)
[2020-04-08] MEDS ORDERED: ROPIVACAINE 0.5% 5 MG/ML 30 ML VIAL ONE (06:43)
[2020-04-08] MEDS ORDERED: PERFLUTREN LIPID MICROSPHERE (DEFINITY) IV ONE (06:47)
[2020-04-08] MEDS ORDERED: INSULIN HUMAN NPH SC ONE ×2 (08:00→17:30)
[2020-04-08] MEDS ORDERED: PHYTONADIONE 2.5 MG TAB PO STA (08:23)
[2020-04-08] MEDS ORDERED: PHYTONADIONE 5 MG TAB PO ONE (08:30)
[2020-04-08] MEDS: NSS + 20MEQ KCL 20 MEQ/1,000 ML BAG IV SCH ×2 (08:51→20:08)
[2020-04-08] MEDS ORDERED: hydroCHLOROthiazide 25 MG TAB PO SCH (09:00)
[2020-04-08] MEDS ORDERED: CLOPIDOGREL BISULFATE 75 MG TAB PO SCH (09:00)
[2020-04-08] MEDS: PANTOprazole 40 MG TAB PO SCH (09:11)
[2020-04-08] MEDS: carvediloL 6.25 MG TAB PO SCH ×2 (09:12→20:09)
[2020-04-08] MEDS: LOVASTATIN 20 MG TAB PO SCH (09:12)
[2020-04-08] MEDS: amLODIPine BESYLATE 5 MG TAB PO SCH (09:13)
[2020-04-08] MEDS: lisinopril 2.5 MG TAB PO SCH (09:13)
[2020-04-08] MEDS: allopurinoL 100 MG TAB PO SCH (09:14)
--- NOTE | 2020-04-08 10:27 | Cardiology Consultation ---
Date of Consultation April 08, 2020 Assessment & Plan (1) Near syncope: (2) Vertigo: (3) Elevated troponin: (4) Hypertension: (5) Left bundle-branch block: (6) Preop cardiovascular exam: ASSESSMENT/PLAN: 1. Elevated troponin: Her troponin is minimally elevated and is not diagnostic of myocardial infarction. She did not present with acute coronary syndrome. She denies any ischemic symptoms. In the absence of symptoms, and the necessity of upcoming surgery, ischemic evaluation is not necessary at this time. 2. Near syncope: She denies full loss of consciousness. Likely related to vertigo as she has been having vertigo for 4 days. To further investigate for arrhythmia, 30 day MCOT is being requested from the cardiology office if she is not noted to have any significant arrhythmia while hospitalized. 3. Vertigo: Per primary service. 4. Left bundle-branch block: Chronic. 5. Hypertension: Blood pressure currently normotensive but has been intermittently hypertensive, but also while in pain from her right arm fracture. No adjustments are necessary at this time for her antihypertensive regimen. 6. Preop cardiac assessment: She is typically able to ambulate throughout her house without anginal symptoms. She is acceptable risk for upcoming right upper extremity surgery. Please call with any other questions or concerns. Thank you for allowing me to participate in the care of your patient. Please call for any other questions or concerns. Sincerely, Madi Renee M.D. History of Present Illness Reason for Consultation: Elevated troponin and near syncope Requesting Physician: Jeff Amezquita Attending Physician: Obed Garcia MD History of Present Illness Ms. Manzanares is a very pleasant 84-year-old female with history significant for stroke concerning for embolic event on anticoagulation, type 2 diabetes, CKD, hypertension, dyslipidemia, and left bundle-branch block. She was admitted on 04/07/2020 after falling and fracturing her proximal right humerus. She has been experiencing which she describes as vertigo for the past 4 days. She describes it as a spinning sensation, worse when changing positions, and turning her head to the side. Her daughter taught her some maneuvers that helped improve her symptoms but they returned. Yesterday, she had further episodes of the dizziness and she felt herself falling and blacking out but states that she never lost consciousness completely. She remembers falling. She states that 1 of her daughters caught her head to avoid injury to her head but she did injure her right arm. She denies chest pain, shortness of breath, palpitations or any other symptoms other than dizziness at the time of her fall and near-syncope. She denies a history of syncope in the past. Her daughter Evelina, was contacted via telephone as per patient request. Evelina is a nurse and states that she was not present for the incident but spoke with her sisters. She also states that they checked her blood pressure over the past few days during episodes of vertigo and that her blood pressure remained normal. She denies fevers, chills, melena, hematochezia, hematuria, or other bleeding. During this hospital stay, her troponin was evaluated and her levels have remained relatively stable at 0.07, below the threshold of [place]. She has been seen by Orthopedics and they plan on performing surgery soon for her right arm fracture. Review of systems: As above. Review of systems otherwise negative/unremarkable. Family history: No known premature CAD. Social history: Denies tobacco, alcohol, or drug abuse. She is a . She has 4 daughters. She had 2 sons who near . 1 of her daughters live with her. Her daughter, Evelina, is a nurse. She states that her nephew is Dr. Sherif Francisco. 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 She is unaccompanied. Allergies Allergy/AdvReac Type Severity Reaction Status Date / Time No Known Drug Allergies Allergy Verified 04/07/20 14:19 Home Medications Medication Instructions Recorded Confirmed Type insulin syringe-needle U-100 0.5 #10 ea 12/06/18 03/03/20 History mL 31 gauge x 5/16" lancing device with lancets kit #1 ea 12/06/18 03/03/20 History OneTouch Delica Lancets 33 gauge #300 ea NS 01/23/19 03/03/20 Rx OneTouch Ultra Blue Test Strip #300 ea NS 01/23/19 03/03/20 Rx allopurinol 100 mg tablet 100 mg PO DAILY #90 tab 12/26/19 04/07/20 Rx amlodipine 2.5 mg tablet 2.5 mg PO DAILY #90 tab 12/26/19 04/07/20 Rx carvedilol 6.25 mg tablet 6.25 mg PO BID #180 tab 12/26/19 04/07/20 Rx clopidogrel 75 mg tablet 75 mg PO DAILY #90 tab 12/26/19 04/07/20 Rx lisinopril 2.5 mg tablet 2.5 mg PO DAILY #90 tab 12/26/19 04/07/20 Rx lovastatin 40 mg tablet 40 mg PO DAILY #90 tab 12/26/19 04/07/20 Rx nitrofurantoin macrocrystal 50 mg 50 mg PO HS #90 cap 02/18/20 04/07/20 Rx capsule insulin human U-100 NPH-regulr 45 - 50 unit SUBCUT BID #6 ml 03/03/20 04/07/20 History 70-30 mix 100 unit/mL subcutaneous susp omeprazole 20 mg capsule,delayed 20 mg PO DAILY #90 cap 03/18/20 04/07/20 Rx release hydrochlorothiazide 12.5 mg tablet 12.5 mg PO DAILY #90 tab 03/24/20 04/07/20 Rx levothyroxine 137 mcg tablet 137 mcg PO .COMPLEX #90 tab 03/24/20 04/07/20 Rx warfarin [Jantoven] 5 mg PO UD 04/07/20 04/07/20 History Patient History Medical History Acute CVA (cerebrovascular accident) Acute CVA (cerebrovascular accident) Arthritis, degenerative Cerebral infarction, unspecified Chronic anticoagulation Chronic kidney disease, stage 3 Controlled type 2 diabetes mellitus with kidney complication, with long-term current use of insulin Esophageal reflux Hyperlipidemia Hypertension Hypothyroidism Left bundle-branch block Left ventricular hypertrophy Lumbar spine pain Spinal stenosis, 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 Vitamin D deficiency Surgical History Hx of laminectomy Family History Father Lung disease Mother Diabetes Denies family history of Ovarian cancer Prostate cancer Myocardial infarction Breast cancer Lung cancer Colorectal cancer Stroke Social History Smoking Status: Never smoker Second Hand Exposure: No; Hx Alcohol Use: No Hx Substance Use: No Preferred Language: Italian Communication Ability: Effective Hearing Ability: Use of [employer] Mgr Required: No Beliefs That Will Affect Care: None marital status: / Current Living Situation: Family current occupational status: retired Feels Safe at Home: Yes Dental Care, Regularly: Yes Physical Activity Frequency: 3-4 Times per Week Seatbelt Use: always Sunscreen Use: Yes Assistive Devices: Cane and Glasses Physical Exam Physical Exam: Gen.: No acute distress. Alert and oriented. HEENT: Anicteric sclera. Neck: No JVD. No bruits. Normal carotid upstrokes bilaterally. Cardiac: PMI was nondisplaced. No ventricular heave. Regular rate and rhythm. Normal S1-S2. 1/6 systolic murmur. No rubs, or gallops. Pulmonary: Clear to auscultation bilaterally without wheezes, rales, or rhonchi. Abdomen: Soft, nontender, nondistended, with normoactive bowel sounds. No bruits noted. Extremities: 2+ radial pulses bilaterally. 2+ posterior tibialis pulses bilaterally. No pitting edema or cyanosis. No palpable cords. Psychiatric: Affect appears appropriate. Results & Data ([facility]) Vital Signs (Past 12 Hours) Vital Signs Temp Pulse Resp BP Pulse Ox 04/08/20 08:07 36.7 C 77 19 133/81 94 04/08/20 03:56 36.6 C 77 20 117/70 96 04/07/20 23:46 37.2 C 85 18 158/70 H 97 Laboratory Results Laboratory Results - last 24 hr 04/07/20 04/07/20 04/07/20 12:43 12:43 12:43 WBC 19.57 H RBC 4.33 Hgb 12.8 Hct 39.2 MCV 90.5 MCH 29.6 MCHC 32.7 RDW Std Deviation 51.4 H RDW Coeff of Lotus 15.5 H Plt Count 256 MPV 9.6 Immature Gran % (Auto) 0.2 Neut % (Auto) 85.0 Lymph % (Auto) 8.4 Glades % (Auto) 4.4 Eos % (Auto) 1.8 Baso % (Auto) 0.2 Neut # (Auto) 16.62 H Lymph # (Auto) 1.65 Glades # (Auto) 0.87 H Eos # (Auto) 0.36 Baso # (Auto) 0.03 Immature Gran # (Auto) 0.04 H PT 39.6 H INR 4.0 H Sodium 136 Potassium 3.7 Chloride 103 Carbon Dioxide 27 Anion Gap 6.0 BUN 26 H Creatinine 1.42 H Est Cr Clr Drug Dosing 30.3 Est GFR ( Amer) 39.2 Est GFR (Non-Af Amer) 33.8 BUN/Creatinine Ratio 18.1 Glucose 227 H POC Glucose Estimat Average Glucose Hemoglobin A1c Calcium 8.9 Phosphorus Magnesium Total Bilirubin 0.6 AST 23 ALT 30 Alkaline Phosphatase 84 Troponin I 0.067 H* Total Protein 7.4 Albumin 3.6 Globulin 3.8 Albumin/Globulin Ratio 0.9 TSH SARS-CoV-2 Ag (Rapid) 04/07/20 04/07/20 04/07/20 15:05 16:39 17:53 WBC RBC Hgb Hct MCV MCH MCHC RDW Std Deviation RDW Coeff of Lotus Plt Count MPV Immature Gran % (Auto) Neut % (Auto) Lymph % (Auto) Glades % (Auto) Eos % (Auto) Baso % (Auto) Neut # (Auto) Lymph # (Auto) Glades # (Auto) Eos # (Auto) Baso # (Auto) Immature Gran # (Auto) PT INR Sodium Potassium Chloride Carbon Dioxide Anion Gap BUN Creatinine Est Cr Clr Drug Dosing Est GFR ( Amer) Est GFR (Non-Af Amer) BUN/Creatinine Ratio Glucose POC Glucose 124 H Estimat Average Glucose Hemoglobin A1c Calcium Phosphorus 2.7 Magnesium 1.6 L Total Bilirubin AST ALT Alkaline Phosphatase Troponin I 0.078 H* Total Protein Albumin Globulin Albumin/Globulin Ratio TSH 2.880 SARS-CoV-2 Ag (Rapid) Negative 04/07/20 04/07/20 04/07/20 20:31 21:52 23:59 WBC RBC Hgb Hct MCV MCH MCHC RDW Std Deviation RDW Coeff of Lotus Plt Count MPV Immature Gran % (Auto) Neut % (Auto) Lymph % (Auto) Glades % (Auto) Eos % (Auto) Baso % (Auto) Neut # (Auto) Lymph # (Auto) Glades # (Auto) Eos # (Auto) Baso # (Auto) Immature Gran # (Auto) PT INR Sodium Potassium Chloride Carbon Dioxide Anion Gap BUN Creatinine Est Cr Clr Drug Dosing Est GFR ( Amer) Est GFR (Non-Af Amer) BUN/Creatinine Ratio Glucose POC Glucose 212 H 143 H Estimat Average Glucose Hemoglobin A1c Calcium Phosphorus Magnesium Total Bilirubin AST ALT Alkaline Phosphatase Troponin I 0.079 H* Total Protein Albumin Globulin Albumin/Globulin Ratio TSH SARS-CoV-2 Ag (Rapid) 04/08/20 04/08/20 04/08/20 04:09 04:12 04:12 WBC RBC Hgb Hct MCV MCH MCHC RDW Std Deviation RDW Coeff of Lotus Plt Count MPV Immature Gran % (Auto) Neut % (Auto) Lymph % (Auto) Glades % (Auto) Eos % (Auto) Baso % (Auto) Neut # (Auto) Lymph # (Auto) Glades # (Auto) Eos # (Auto) Baso # (Auto) Immature Gran # (Auto) PT 25.2 H INR 2.5 H Sodium Potassium Chloride Carbon Dioxide Anion Gap BUN Creatinine Est Cr Clr Drug Dosing Est GFR ( Amer) Est GFR (Non-Af Amer) BUN/Creatinine Ratio Glucose POC Glucose 123 H Estimat Average Glucose Hemoglobin A1c Calcium Phosphorus Magnesium Total Bilirubin AST ALT Alkaline Phosphatase Troponin I 0.076 H* Total Protein Albumin Globulin Albumin/Globulin Ratio [facility] SARS-CoV-2 Ag (Rapid) 04/08/20 04/08/20 04/08/20 04:12 07:14 10:41 WBC RBC Hgb Hct MCV MCH MCHC RDW Std Deviation RDW Coeff of Lotus Plt Count MPV Immature Gran % (Auto) Neut % (Auto) Lymph % (Auto) Glades % (Auto) Eos % (Auto) Baso % (Auto) Neut # (Auto) Lymph # (Auto) Glades # (Auto) Eos # (Auto) Baso # (Auto) Immature Gran # (Auto) PT INR Sodium Potassium Chloride Carbon Dioxide Anion Gap BUN Creatinine Est Cr Clr Drug Dosing Est GFR ( Amer) Est GFR (Non-Af Amer) BUN/Creatinine Ratio Glucose POC Glucose 120 H Estimat Average Glucose 166 Hemoglobin A1c 7.4 H Calcium Phosphorus Magnesium Total Bilirubin AST ALT Alkaline Phosphatase Troponin I 0.073 H* Total Protein Albumin Globulin Albumin/Globulin Ratio [facility] SARS-CoV-2 Ag (Rapid) 04/08/20 04/08/20 11:10 11:15 WBC RBC Hgb Hct MCV MCH MCHC RDW Std Deviation RDW Coeff of Lotus Plt Count MPV Immature Gran % (Auto) Neut % (Auto) Lymph % (Auto) Glades % (Auto) Eos % (Auto) Baso % (Auto) Neut # (Auto) Lymph # (Auto) Glades # (Auto) Eos # (Auto) Baso # (Auto) Immature Gran # (Auto) PT 16.9 H INR 1.6 H Sodium Potassium Chloride Carbon Dioxide Anion Gap BUN Creatinine Est Cr Clr Drug Dosing Est GFR ( Amer) Est GFR (Non-Af Amer) BUN/Creatinine Ratio Glucose POC Glucose 199 H Estimat Average Glucose Hemoglobin A1c Calcium Phosphorus Magnesium Total Bilirubin AST ALT Alkaline Phosphatase Troponin I Total Protein Albumin Globulin Albumin/Globulin Ratio TSH SARS-CoV-2 Ag (Rapid) Diagnostic Findings Telemetry personally reviewed: Sinus rhythm. No arrhythmia. Echo 04/08/2020 personally reviewed: Preliminary review demonstrated normal LV systolic function. No severe valvular abnormalities noted on preliminary review. Formal review to follow. ECGs personally reviewed: ECG 04/07/2020 at 1242: Sinus with 1st degree AV block. LBBB. CXR 04/07/2020: No acute cardiopulmonary abnormality. Comminuted fracture of the right humeral head and neck Medications Administered Current Inpatient Medications Acetaminophen (Acetaminophen 325 Mg Tab) 650 mg PO Q4H PRN PRN Reason: Pain or Fever Stop: 05/07/20 15:37 Allopurinol (Allopurinol 100 Mg Tab) 100 mg PO DAILY [facility] Stop: 05/08/20 08:59 Last Admin: 04/08/20 09:14 Dose: 100 mg Documented by: Amlodipine Besylate (Amlodipine Besylate 5 Mg Tab) 2.5 mg PO DAILY JEN Stop: 05/08/20 08:59 Last Admin: 04/08/20 09:13 Dose: 2.5 mg Documented by: Carvedilol (Carvedilol 6.25 Mg Tab) 6.25 mg PO BID JEN Stop: 05/07/20 20:59 Last Admin: 04/08/20 09:12 Dose: 6.25 mg Documented by: Dextrose (Dextrose 50% 50 Ml Syringe) 25 - 50 ml IV UD PRN; Protocol PRN Reason: Hypoglycemia Protocol Stop: 05/07/20 15:57 Glucagon (Glucagon For Inj 1 Mg Vial) 1 mg SQ UD PRN; Protocol PRN Reason: Hypoglycemia Protocol Stop: 05/07/20 15:57 Glucose (Glucose 10 Tabs/Tube) 4 - 8 tabs PO UD PRN; Protocol PRN Reason: Hypoglycemia Protocol Stop: 05/07/20 15:57 Glucose (Glucose 40% Gel 15 Gm Tube) 15 - 30 gm PO UD PRN; Protocol PRN Reason: Hypoglycemia Protocol Stop: 05/07/20 15:57 Hydrochlorothiazide (Hydrochlorothiazide 25 Mg Tab) 12.5 mg PO DAILY JEN Stop: 05/08/20 08:59 Last Admin: 04/08/20 09:14 Dose: 12.5 mg Documented by: Potassium Chloride/Sodium Chloride (Normal Saline W/20 Meq Kcl) 20 meq in 1,000 mls @ 75 mls/hr IV .[id number] JEN Stop: 05/07/20 17:59 Last Admin: 04/08/20 08:51 Dose: 75 mls/hr Documented by: Insulin Aspart (Insulin Aspart 100 Units/Ml 3 Ml Pen) 0 units SC ACHS [facility] Stop: 05/07/20 16:59 Last Admin: 04/08/20 11:59 Dose: 5 units Documented by: Levothyroxine Sodium (Levothyroxine Sodium 137 Mcg Tablet) 137 mcg PO [id number] [facility] Stop: 05/08/20 06:29 Last Admin: 04/08/20 06:11 Dose: 137 mcg Documented by: Lisinopril (Lisinopril 2.5 Mg Tab) 2.5 mg PO DAILY [facility] Stop: 05/08/20 08:59 Last Admin: 04/08/20 09:13 Dose: 2.5 mg Documented by: Lovastatin (Lovastatin 20 Mg Tab) 40 mg PO DAILY [facility] Stop: 05/08/20 08:59 Last Admin: 04/08/20 09:12 Dose: 40 mg Documented by: Magnesium Hydroxide (Magnesium Hydroxide Susp 30 Ml Udc) 30 ml PO Q12H PRN PRN Reason: Constipation Stop: 05/07/20 15:37 Miscellaneous (Carbohydrates For Hypoglycemia ) 15 - 30 gm PO UD PRN PRN Reason: Hypoglycemia Protocol Stop: 05/07/20 15:57 Miscellaneous Information (Pharmacy Glycemic Mgmt Consult) 1 ea N/A UD PRN; Protocol PRN Reason: Consult Stop: 05/07/20 17:28 Morphine Sulfate (Morphine Sulfate 2 Mg/Ml Carp) 2 mg IV Q4H PRN PRN Reason: Pain Stop: 04/21/20 16:08 Nitrofurantoin Macrocrystals (Nitrofurantoin Macrocrystal 50 Mg Cap) 50 mg PO HS JEN Stop: 04/12/20 20:59 Last Admin: 04/07/20 21:49 Dose: 50 mg Documented by: Oxycodone HCl (Oxycodone Hcl Ir 5 Mg Tab (Immediate Release)) 5 mg PO Q8H PRN PRN Reason: Pain Stop: 04/21/20 16:08 Last Admin: 04/08/20 10:07 Dose: 5 mg Documented by: Pantoprazole Sodium (Pantoprazole 40 Mg Tab) 40 mg PO DAILY JEN Stop: 05/08/20 08:59 Last Admin: 04/08/20 09:11 Dose: 40 mg Documented by: Polyethylene Glycol (Polyethylene (Miralax) 17 Gm Pack) 17 gm PO DAILY PRN PRN Reason: Constipation Stop: 05/07/20 15:37 PG Care Time/CCT Total # of Minutes Spent Total Time Spent with Patient: Total time spent is greater than 50% in coordination of care (as documented) at patient's floor/unit and/or counseling patient: Coding Level of Care Code 43859 Initial Inpt Care Lvl 2 Diagnoses Near syncope R55 Vertigo R42 Elevated troponin R77.8 Hypertension I10 Left bundle-branch block I44.7 Preop cardiovascular exam Z01.810
[2020-04-08 11:27] LABS: INR 1.6 (0.9-1.1); Prothrombin Time 16.9 Seconds (9.0-12.0)
--- NOTE | 2020-04-08 11:49 | Orthopedic Progress Note ---
Date of Service April 08, 2020 Assessment & Plan (1) Closed fracture of head of right humerus: Currently, the patient's INR is still a little high for surgery. I discussed this with Dr. Villagran. Plan for the patient to eat today and continue to have medicine service bring INR down to 1.5 or less. Plan for surgery tomorrow afternoon. Discussed this with the patient and she is very understandable. Dr. Villagran will see patient today to discuss surgery. Admission and Anticipated Discharge Date Admission Date: April 07, 2020 Subjective Patient sitting up in a chair at the bedside. Right upper extremity elevated on multiple pillows. Patient states that when she tries to move the shoulder is very painful. Pain is controlled at rest. No other complaints at this time. Physical Exam Physical Exam: Right shoulder swollen. Tender on palpation. Neurovascular is intact. Cap refill is less than 2 seconds. Good wrist and finger range of motion. Results & Data ([facility]) Vital Signs (Past 12 Hours) Vital Signs Temp Pulse Resp BP Pulse Ox 04/08/20 08:07 36.7 C 77 19 133/81 94 04/08/20 03:56 36.6 C 77 20 117/70 96 Laboratory Results Laboratory Results WBC 19.57 K/uL (4.8-10.8) H 04/07/20 12:43 RBC 4.33 M/uL (4.2-5.4) 04/07/20 12:43 Hgb 12.8 g/dL (12.0-16.0) 04/07/20 12:43 Hct 39.2 % (37-47) 04/07/20 12:43 MCV 90.5 fL (80-100) 04/07/20 12:43 MCH 29.6 pg (25-34) 04/07/20 12:43 MCHC 32.7 g/dL (32-36) 04/07/20 12:43 RDW Std Deviation 51.4 fL (36.4-46.3) H 04/07/20 12:43 RDW Coeff of Lotus 15.5 % (11.5-14.5) H 04/07/20 12:43 Plt Count 256 K/uL (130-400) 04/07/20 12:43 MPV 9.6 fL (7.4-10.4) 04/07/20 12:43 Immature Gran % (Auto) 0.2 % 04/07/20 12:43 Neut % (Auto) 85.0 % 04/07/20 12:43 Lymph % (Auto) 8.4 % 04/07/20 12:43 Mitchell % (Auto) 4.4 % 04/07/20 12:43 Eos % (Auto) 1.8 % 04/07/20 12:43 Baso % (Auto) 0.2 % 04/07/20 12:43 Neut # (Auto) 16.62 K/uL (1.4-6.5) H 04/07/20 12:43 Lymph # (Auto) 1.65 K/uL (1.2-3.4) 04/07/20 12:43 Mitchell # (Auto) 0.87 K/uL (0.11-0.59) H 04/07/20 12:43 Eos # (Auto) 0.36 K/uL (0-0.5) 04/07/20 12:43 Baso # (Auto) 0.03 K/uL (0-0.2) 04/07/20 12:43 Immature Gran # (Auto) 0.04 K/uL (0.00-0.02) H 04/07/20 12:43 PT 16.9 Seconds (9.0-12.0) H 04/08/20 11:10 INR 1.6 (0.9-1.1) H 04/08/20 11:10 Sodium 136 mmol/L (136-145) 04/07/20 12:43 Potassium 3.7 mmol/L (3.5-5.1) 04/07/20 12:43 Chloride 103 mmol/L (98-107) 04/07/20 12:43 Carbon Dioxide 27 mmol/L (21-32) 04/07/20 12:43 Anion Gap 6.0 (3-11) 04/07/20 12:43 BUN 26 mg/dl (7-18) H 04/07/20 12:43 Creatinine 1.42 mg/dl (0.6-1.2) H 04/07/20 12:43 Est Cr Clr Drug Dosing 30.3 ml/min 04/07/20 12:43 Est GFR ( Amer) 39.2 04/07/20 12:43 Est GFR (Non-Af Amer) 33.8 04/07/20 12:43 BUN/Creatinine Ratio 18.1 (10-20) 04/07/20 12:43 Glucose 227 mg/dl (70-99) H 04/07/20 12:43 POC Glucose 199 mg/dl (70-99) H 04/08/20 11:15 Estimat Average Glucose 166 mg/dl 04/08/20 04:12 Hemoglobin A1c 7.4 % (4.5-5.6) H 04/08/20 04:12 Calcium 8.9 mg/dl (8.5-10.1) 04/07/20 12:43 Phosphorus 2.7 mg/dl (2.5-4.9) 04/07/20 16:39 Magnesium 1.6 mg/dl (1.8-2.4) L 04/07/20 16:39 Total Bilirubin 0.6 mg/dl (0.2-1) 04/07/20 12:43 AST 23 U/L (15-37) 04/07/20 12:43 ALT 30 U/L (12-78) 04/07/20 12:43 Alkaline Phosphatase 84 U/L (45-117) 04/07/20 12:43 Troponin I 0.073 ng/ml (0-0.045) H* 04/08/20 10:41 Total Protein 7.4 gm/dl (6.4-8.2) 04/07/20 12:43 Albumin 3.6 gm/dl (3.4-5.0) 04/07/20 12:43 Globulin 3.8 gm/dl (2.5-4.0) 04/07/20 12:43 Albumin/Globulin Ratio 0.9 (0.9-2) 04/07/20 12:43 TSH 2.880 uIu/ml (0.300-4.500) 04/07/20 16:39 SARS-CoV-2 Ag (Rapid) Negative (Negative) 04/07/20 15:05 (1) Closed fracture of head of right humerus Encounter type: initial encounter Qualified Code(s): S42.291A - Other displaced fracture of upper end of right humerus, initial encounter for closed fracture
[2020-04-08] MEDS ORDERED: MoRPHine SULFATE 4 MG/ML 1 ML CARP\\VIAL IV PRN (13:11)
[2020-04-08] MEDS ORDERED: ACETAMINOPHEN 500 MG TAB PO PRN (13:11)
--- NOTE | 2020-04-08 13:16 | Hospitalist Progress Note ---
Date of Service April 08, 2020 Assessment & Plan (1) Closed fracture of head of right humerus: (2) Elevated troponin: Patient has asymptomatic elevation of her troponin. She did have a small run of V. tach in the ER associated with hypomagnesemia. She is seen by Dr. Renee with the following recommendations Elevated troponin: Her troponin is minimally elevated and is not diagnostic of myocardial infarction. She did not present with acute coronary syndrome. She denies any ischemic symptoms. In the absence of symptoms, and the necessity of upcoming surgery, ischemic evaluation is not necessary at this time. Near syncope: She denies full loss of consciousness. Likely related to vertigo as she has been having vertigo for 4 days. To further investigate for arrhythmia, 30 day MCOT is being requested from the cardiology office if she is not noted to have any significant arrhythmia while hospitalized. Left bundle-branch block: Chronic. . Preop cardiac assessment: She is typically able to ambulate throughout her house without anginal symptoms. She is acceptable risk for upcoming right upper extremity surgery. Please call with any other questions or concerns. (3) Hypertension: * Typically takes amlodipine and carvedilol at home these will be continued hydrochlorothiazide will be held (4) Left bundle-branch block: * Appears unchanged from prior EKGs. 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 Patient's INR was elevated on presentation she was given 5 mg of vitamin K with only reduction of 2.5 of the INR. Her surgery was pushed another day due to her anticoagulation she is given another 2.5 mg of vitamin K hopeful to have her INR to 1.4 prior to surgery (6) Chronic kidney disease, stage 3: (7) Vertigo: Admission and Anticipated Discharge Date Admission Date: April 07, 2020 Subjective Patient sitting up in a chair at the bedside. Right upper extremity elevated on multiple pillows. Patient states that when she tries to move the shoulder is very painful. Pain is controlled at rest. No other complaints at this time. Review of Systems Review of Systems: Mild distress and fatigue worsening pain with movement of her arm no headache, blurry or double vision no speech or swallowing issues no chest pain, pressure or palpitations no shortness of breath, cough or wheezes no abdominal pain, nausea or vomiting, diarrhea or constipation no dysuria, hematuria or frequency Right shoulder very painful to movement no back pain, CVA tenderness or radicular pain no bruising, bleeding or rashes no focal signs of weakness or numbness or altered sensation no complaints of anxiety or depression.. Physical Exam Physical Exam: The patient appeared well nourished and normally developed. Vital signs as documented. Head exam is normocephalic atraumatic no scleral icterus Neck is without JVD, thyromegaly, or carotid bruits. Lungs are clear to auscultation, no focal loss of breath sounds Cardiac exam, Rhythm is regular.. Mild systolic murmur is heard no further arrhythmias noted Abdominal exam reveals normal bowel sounds, soft non tender, no masses Right shoulder is tender to movement she is her arm braced up on her abdomen Neurologic exam is alert and oriented, no focal loss of strength or sensation Skin is without bruises or rashes Psychologically is without concerns for anxiety or depression. Results & Data Results & Data ([facility]) Vital Signs (Past 12 Hours) Vital Signs Temp Pulse Resp BP Pulse Ox 04/08/20 12:02 98.4 F 85 19 101/65 92 04/08/20 08:07 98.1 F 77 19 133/81 94 04/08/20 03:56 97.9 F 77 20 117/70 96 PG Care Time/CCT Total # of Minutes Spent Total Time Spent with Patient: Total time spent is greater than 50% in coordination of care (as documented) at patient's floor/unit and/or counseling patient: Coding Level of Care Code 43315 Subseq Hosp Care Lvl 3 Diagnoses Closed fracture of head of right humerus S42.291A Encounter type: initial encounter Elevated troponin R77.8 Hypertension I10 Left bundle-branch block I44.7 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
--- NOTE | 2020-04-08 13:27 | Pharmacy Report ---
Glycemic Control Consultation - Date of Service April 08, 2020 - Scope Scope: Glycemic Pharmacist consulted for glycemic control and to write orders per [facility] inpatient glycemic control protocol. - Objective Weight: 84.5 kg Accuchecks BSG (last 24hrs): 04/07/20 04/07/20 04/07/20 12:43 17:53 20:31 Glucose 227 H POC Glucose 124 H 212 H 04/07/20 04/08/20 04/08/20 23:59 04:09 07:14 Glucose POC Glucose 143 H 123 H 120 H 04/08/20 11:15 Glucose POC Glucose 199 H Laboratory Data (last 24hrs): 04/07/20 12:43 Potassium 3.7 Carbon Dioxide 27 Anion Gap 6.0 Creatinine 1.42 H Est Cr Clr Drug Dosing 30.3 HbA1c: Hemoglobin A1c 7.4 % (4.5-5.6) H 04/08/20 04:12 - Recent Pertinent Medications Outpatient Anti-diabetic Regimen: * Novolin 70/30 - 45-50 units BIDM * A1c = 7.4 % 04/08/20 The patient is currently receiving: * Basal insulin: NPH 10 units SQ x 1 * Correctional Insulin: Novolog Correction per scale ACHS Goal Range: Low 110 mg/dL - High 140 mg/dL Correction Factor: 25 mg/dL/unit * Prandial insulin: Per carb ratio of 1 unit per 7 grams CHO consumed * Oral Agents: Risk Factors for Insulin Resistance: * Diet: NPO --> T2DM - Assessment & Plan Assessment & Plan: ASSESSMENT: * Ms Manzanares is an 84 y/o F with a PMH of T2DM well controlled on Novolin 70/30 who presents s/p fall pending orthopedic intervention. Patient was NPO yesterday into today and received NPH 10 units last night. Fasting BSG was 120 mg/dL. * Since patient's PO intake was uncertain this morning, only gave additional 10 units of NPH. Lunch BSG was 199 mg/dL. * Due to diet order for this afternoon then NPO tomorrow, will give 20 units of NPH with dinner then readdress tomorrow. * Weight-based stress of 3 Novolog ordered as this correlates with patient's expected basal requirements. PLAN FOR INPATIENT GLYCEMIC CONTROL: * Basal insulin * NPH 10 units SQ this morning then 20 units at dinnertime * Bolus insulin * NovoLog per scale ACHS or Q6hrs while NPO * Goal Range: Low 110 mg/dL - High 140 mg/dL * Correction Factor: 20 mg/dL/unit * Nutritional / Prandial insulin per carb ratio of 1 unit per 6 grams CHO consumed * Please note that the plan above was derived based on current level of insulin resistance and hospital stress. These recommendations are appropriate for inpatient admission only. Plan of care upon discharge will need to be reassessed to avoid potential outpatient hypo/hyperglycemia. Thank you.
--- NOTE | 2020-04-08 14:44 | XCELERA ---
[id number]
[2020-04-08] MEDS: nitrofurantoin macrocrystaL 50 MG CAP PO SCH (20:09)
[2020-04-09] MEDS: INSULIN ASPART 100 UNITS/ML 3 ML PEN SC SCH ×4 (00:35→21:05)
[2020-04-09] MEDS: LEVOTHYROXINE SODIUM 137 MCG TABLET PO SCH (06:16)
[2020-04-09] MEDS: amLODIPine BESYLATE 5 MG TAB PO SCH (07:59)
[2020-04-09] MEDS: LOVASTATIN 20 MG TAB PO SCH (07:59)
[2020-04-09] MEDS: carvediloL 6.25 MG TAB PO SCH ×2 (07:59→21:59)
[2020-04-09] MEDS ORDERED: INSULIN HUMAN NPH SC ONE ×2 (08:00→17:30)
[2020-04-09] MEDS: allopurinoL 100 MG TAB PO SCH (08:00)
[2020-04-09] MEDS: PANTOprazole 40 MG TAB PO SCH (08:00)
[2020-04-09] MEDS: lisinopril 2.5 MG TAB PO SCH (08:01)
--- NOTE | 2020-04-09 09:04 | Hospitalist Progress Note ---
Date of Service April 09, 2020 Assessment & Plan (1) Closed fracture of head of right humerus: (2) Elevated troponin: Patient has asymptomatic elevation of her troponin. She did have a small run of V. tach in the ER associated with hypomagnesemia. She is seen by Dr. Renee with the following recommendations Elevated troponin: Her troponin is minimally elevated and is not diagnostic of myocardial infarction. She did not present with acute coronary syndrome. She denies any ischemic symptoms. In the absence of symptoms, and the necessity of upcoming surgery, ischemic evaluation is not necessary at this time. Near syncope: She denies full loss of consciousness. Likely related to vertigo as she has been having vertigo for 4 days. To further investigate for arrhythmia, 30 day MCOT is being requested from the cardiology office if she is not noted to have any significant arrhythmia while hospitalized. Left bundle-branch block: Chronic. Echo 04/08, normal EF no significant valvular abnormalities . Preop cardiac assessment: She is typically able to ambulate throughout her house without anginal symptoms. She is acceptable risk for right upper extremity surgery. (3) Hypertension: * Typically takes amlodipine and carvedilol at home these will be continued hydrochlorothiazide will be held (4) Left bundle-branch block: * Appears unchanged from prior EKGs. 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 Patient's INR was elevated on presentation she was given 5 mg of vitamin K with only reduction of 2.5 of the INR. Her surgery was pushed another day due to her anticoagulation she is given another 2.5 mg of vitamin K hopeful to have her INR to 1.4 prior to surgery (6) Chronic kidney disease, stage 3: (7) Vertigo: Admission and Anticipated Discharge Date Admission Date: April 07, 2020 Subjective Patient states that she when she tries to move the shoulder continues to be painful.Patient sitting up in chair at the bedside. Pain is controlled at rest. No other complaints at this time. Review of Systems Review of Systems: Mild distress and fatigue worsening pain with movement of her arm no headache, blurry or double vision no speech or swallowing issues no chest pain, pressure or palpitations no shortness of breath, cough or wheezes no abdominal pain, nausea or vomiting, diarrhea or constipation no dysuria, hematuria or frequency Right shoulder very painful to movement no back pain, CVA tenderness or radicular pain no bruising, bleeding or rashes no focal signs of weakness or numbness or altered sensation no complaints of anxiety or depression.. Physical Exam Physical Exam: The patient appeared well nourished and normally developed. Vital signs as documented. Head exam is normocephalic atraumatic no scleral icterus Neck is without JVD, thyromegaly, or carotid bruits. Lungs are clear to auscultation, no focal loss of breath sounds Cardiac exam, Rhythm is regular.. Mild systolic murmur is heard no further arr hythmias noted Abdominal exam reveals normal bowel sounds, soft non tender, no masses Right shoulder is tender to movement she is her arm braced up on her abdomen Neurologic exam is alert and oriented, no focal loss of strength or sensation Skin is without bruises or rashes Psychologically is without concerns for anxiety or depression. Results & Data Results & Data ([facility]) Vital Signs (Past 12 Hours) Vital Signs Temp Pulse Resp BP Pulse Ox 04/09/20 07:22 99.5 F 85 17 149/81 H 91 04/09/20 04:21 147/69 H 90 04/09/20 00:55 99.5 F 93 H 135/76 94 PG Care Time/CCT Total # of Minutes Spent Total Time Spent with Patient: Total time spent is greater than 50% in coordination of care (as documented) at patient's floor/unit and/or counseling patient: Coding Level of Care Code 90341 Subseq Hosp Care Lvl 2 Diagnoses Closed fracture of head of right humerus S42.291A Encounter type: initial encounter Elevated troponin R77.8 Hypertension I10 Left bundle-branch block I44.7 retirement (current) use of anticoagulants Z79.01 Chronic kidney disease, stage 3 N18.3 Vertigo R42 (1) Closed fracture of head of right humerus Encounter type: initial encounter Qualified Code(s): S42.291A - Other displaced fracture of upper end of right humerus, initial encounter for closed fracture
[2020-04-09] MEDS: NSS + 20MEQ KCL 20 MEQ/1,000 ML BAG IV SCH ×2 (09:21→22:45)
[2020-04-09 09:29] LABS: INR 1.2 (0.9-1.1); Prothrombin Time 12.1 Seconds (9.0-12.0)
[2020-04-09 09:56] LABS: BUN Creatinine Ratio 21.4 (10-20); Calcium 8.5 mg/dl (8.5-10.1); Creatinine Clr Calc Pharmacy 33.5 ml/min; Est GFR (African American) 44.9; Est GFR (Non-African American) 38.7; Magnesium 1.8 mg/dl (1.8-2.4); Potassium 4.4 mmol/L (3.5-5.1)
--- NOTE | 2020-04-09 12:00 | Pharmacy Report ---
Glycemic Control Progress Note - Date of Service April 09, 2020 - Scope Glycemic Pharmacist consulted for glycemic control to write orders per [facility] inpatient glycemic control protocol. - Objective Accuchecks BSG(last 24 hours):: 04/08/20 04/08/20 04/09/20 16:23 20:42 00:18 Glucose POC Glucose 148 H 165 H 140 H 04/09/20 04/09/20 04/09/20 06:07 07:18 08:53 Glucose 147 H POC Glucose 159 H 169 H 04/09/20 11:09 Glucose POC Glucose 130 H HbA1c:: Hemoglobin A1c 7.4 % (4.5-5.6) H 04/08/20 04:12 - Recent Pertinent Medications The patient is currently receiving: * Basal insulin: NPH 10 units in morning and 20 units in the PM * Correctional Insulin: Novolog Correction per scale ACHS Goal Range: Low 110 mg/dL - High 140 mg/dL Correction Factor: 20 mg/dL/unit * Prandial insulin: Per carb ratio of 1 unit per 6 grams CHO consumed - Outpatient Anti-Diabetic Meds Novolin 70/30 --> 45-50 units BID - Assessment & Plan ASSESSMENT: * See progress note from 04/08/20 for more background info, in short: * Pt receiving SQ basal bolus insulin regimen for hyperglycemia secondary to baseline DM (outpatient regimen on hold). Patient currently NPO for shoulder surgery currently. * Patient is currently receiving an average of 41 units of insulin per day * 30 units of basal insulin * 11 units of prandial/correctional insulin * BSGs ranging 120 - 199 mg/dl over the past 24hrs * Changes needed to insulin regimen: * AM Fasting BSG = 169 mg/dl. This is slightly above goal range for patient based on inpatient targets and co-morbidities. The patient though will be NPO at this point. Will increase basal slightly this morning to 15 units as 10 units did not appear to be enough yesterday. Scale in for this evening depending on if patient has diet ordered or not. * Post-prandial BSGs were reasonably controlled yesterday. Patient may need tighter carbohydrate coverage but this is not really assessable since patient only ate 1 meal yesterday. * Total daily dose is TBD since patient has been NPO for a prolonged period of time * Will also assess later this evening to see if patient received steroids during surgery PLAN FOR INPATIENT GLYCEMIC CONTROL: * NPH 15 units SQ x 1 then 25 units this evening (with diet) or 10 units this evening (without diet) * Continuing correction factor of 20 mg/dl/unit * Continuing carb ratio of 1 unit per 6 grams CHO consumed * Continuing goal range of Low 110 mg/dL - High 140 mg/dL RECOMMENDATIONS FOR DISCHARGE: * Patient's HbA1C reasonably controlled for age and co-morbidities. * Recommend continuing outpatient regimen as long as patient does not have any hypoglycemia. Thank you.
--- NOTE | 2020-04-09 14:39 | Anesthesiology Consultation ---
Date of Service April 09, 2020 Assessment & Plan (1) Encounter for pre-operative examination: Chart Review Chart Review: Acceptable Risk for Surgery History Surgery Operation Date: 04/08/20 07:00 Proposed Procedures p Right Reverse Total Shoulder Arthroplasty Fracture - Bartolome Villagran MD Operation Date: 04/09/20 07:00 Proposed Procedures p Right Reverse Total Shoulder Arthroplasty - Bartolome Villagran MD Height/Weight Height: 5 ft 2 in Weight: 85.5 kg Allergies Allergy/AdvReac Type Severity Reaction Status Date / Time No Known Drug Allergies Allergy Verified 04/07/20 14:19 Medications Home Medications Medication Instructions Recorded Confirmed Last Taken insulin syringe-needle U-100 0.5 #10 ea 12/06/18 03/03/20 Unknown mL 31 gauge x 5/16" lancing device with lancets kit #1 ea 12/06/18 03/03/20 Unknown OneTouch Delica Lancets 33 gauge #300 ea NS 01/23/19 03/03/20 Unknown OneTouch Ultra Blue Test Strip #300 ea NS 01/23/19 03/03/20 Unknown allopurinol 100 mg tablet 100 mg PO DAILY #90 tab 12/26/19 04/07/20 Unknown amlodipine 2.5 mg tablet 2.5 mg PO DAILY #90 tab 12/26/19 04/07/20 Unknown carvedilol 6.25 mg tablet 6.25 mg PO BID #180 tab 12/26/19 04/07/20 Unknown clopidogrel 75 mg tablet 75 mg PO DAILY #90 tab 12/26/19 04/07/20 Unknown lisinopril 2.5 mg tablet 2.5 mg PO DAILY #90 tab 12/26/19 04/07/20 Unknown lovastatin 40 mg tablet 40 mg PO DAILY #90 tab 12/26/19 04/07/20 Unknown nitrofurantoin macrocrystal 50 mg 50 mg PO HS #90 cap 02/18/20 04/07/20 Unknown capsule insulin human U-100 NPH-regulr 45 - 50 unit SUBCUT BID #6 ml 03/03/20 04/07/20 04/07/20 70-30 mix 100 unit/mL subcutaneous 40 units susp omeprazole 20 mg capsule,delayed 20 mg PO DAILY #90 cap 03/18/20 04/07/20 Unknown release hydrochlorothiazide 12.5 mg tablet 12.5 mg PO DAILY #90 tab 03/24/20 04/07/20 Unknown levothyroxine 137 mcg tablet 137 mcg PO .COMPLEX #90 tab 03/24/20 04/07/20 Unknown warfarin [Jantoven] 5 mg PO UD 04/07/20 04/07/20 Unknown Active Medications Generic Name Dose Route Start Last Admin Trade Name Laney PRN Reason Stop Dose Admin Allopurinol 100 mg 04/08/20 09:00 04/09/20 08:00 Allopurinol 100 Mg Tab PO 05/08/20 08:59 100 mg DAILY JEN Administration Amlodipine Besylate 2.5 mg 04/08/20 09:00 04/09/20 07:59 Amlodipine Besylate 5 Mg Tab PO 05/08/20 08:59 2.5 mg DAILY JEN Administration Carvedilol 6.25 mg 04/07/20 21:00 04/09/20 07:59 Carvedilol 6.25 Mg Tab PO 05/07/20 20:59 6.25 mg BID JEN Administration Potassium Chloride/Sodium Chloride 20 meq in 1,000 mls @ 75 mls/hr 04/07/20 18:00 04/09/20 09:21 Normal Saline W/20 Meq Kcl IV 05/07/20 17:59 75 mls/hr .[id number] JEN Administration Insulin Aspart 0 units 04/09/20 00:00 04/09/20 11:12 Insulin Aspart 100 Units/Ml 3 Ml Pen SC 05/09/20 00:00 Not Given Q6 JEN Levothyroxine Sodium 137 mcg 04/08/20 06:30 04/09/20 06:16 Levothyroxine Sodium 137 Mcg Tablet PO 05/08/20 06:29 Not Given [id number] JEN Lisinopril 2.5 mg 04/08/20 09:00 04/09/20 08:01 Lisinopril 2.5 Mg Tab PO 05/08/20 08:59 2.5 mg DAILY JEN Administration Lovastatin 40 mg 04/08/20 09:00 04/09/20 07:59 Lovastatin 20 Mg Tab PO 05/08/20 08:59 40 mg DAILY JEN Administration Nitrofurantoin Macrocrystals 50 mg 04/07/20 21:00 04/08/20 20:09 Nitrofurantoin Macrocrystal 50 Mg Cap PO 04/12/20 20:59 50 mg HS JEN Administration Oxycodone HCl 10 mg 04/08/20 13:11 04/08/20 20:08 Oxycodone Hcl Ir 5 Mg Tab (Immediate Release) PO 04/21/20 16:08 10 mg Q6H PRN Administration Pain Pantoprazole Sodium 40 mg 04/08/20 09:00 04/09/20 08:00 Pantoprazole 40 Mg Tab PO 05/08/20 08:59 40 mg DAILY JEN Administration NPO Date Last Intake of Fluids: 04/08/20 Time Last Intake of Fluids: 23:00 Date Last Intake of Solids: 04/08/20 Time Last Intake of Solids: 18:00 Past Medical History Medical History Acute CVA (cerebrovascular accident) Acute CVA (cerebrovascular accident) Arthritis, degenerative Cerebral infarction, unspecified Chronic anticoagulation Chronic kidney disease, stage 3 Controlled type 2 diabetes mellitus with kidney complication, with long-term current use of insulin Esophageal reflux Hyperlipidemia Hypertension Hypothyroidism Left bundle-branch block Left ventricular hypertrophy Lumbar spine pain Spinal stenosis, 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 Vitamin D deficiency Past Family History Family History Father Lung disease Mother Diabetes Denies family history of Ovarian cancer Prostate cancer Myocardial infarction Breast cancer Lung cancer Colorectal cancer Stroke Past Surgical History Surgical History Hx of laminectomy Social History Smoking Status: Never smoker Hx Alcohol Use: No Alcohol type: wine alcohol intake frequency: holidays/special occasions only Hx Substance Use: No Physical Exam Vital Signs Last Vital Signs Temp 37.1 C 04/09/20 11:39 Pulse 79 04/09/20 11:39 Resp 17 04/09/20 11:39 BP 112/67 04/09/20 11:39 Pulse Ox 91 04/09/20 11:39 Testing Laboratory Results 04/07/20 12:43 04/09/20 08:53 PT 12.1 Seconds (9.0-12.0) H 04/09/20 08:53 INR 1.2 (0.9-1.1) H 04/09/20 08:53 Hemoglobin A1c 7.4 % (4.5-5.6) H 04/08/20 04:12 Blood Type A Negative 04/08/20 16:10 Antibody Screen NEGATIVE 04/08/20 16:10 04/09/20 04/09/20 04/09/20 11:09 07:18 06:07 POC Glucose 130 H 169 H 159 H Electrocardiogram Date: 04/07/20 Findings: + NSR @ (72) and + LBBB Echocardiogram Date: 04/08/20 EF: 55-60% LV Function: normal Valvular Disease: + no significant valvular disease
[2020-04-09] MEDS ORDERED: BACITRACIN INJ 50,000 UNIT VIAL ONE (15:15)
[2020-04-09] MEDS ORDERED: fentaNYL citrate 100 MCG/2 ML VIAL ONE (15:22)
--- NOTE | 2020-04-09 15:55 | History & Physical Bridge Note ---
Date of Service April 09, 2020 History & Physical Bridge Note I have examined the patient, reviewed the History & Physical and in the interval since the performance of the History & Physical I have noted the following changes of clinical significance: no changes noted
[2020-04-09] MEDS ORDERED: ROPIVACAINE 0.5% 5 MG/ML 30 ML VIAL ONE (15:59)
[2020-04-09] MEDS ORDERED: ceFAZolin 2000MG 2,000 MG/15 ML SYR IV ONE (16:05)
[2020-04-09] MEDS ORDERED: HYDROmorphone INJ 1 MG/ML SYRINGE IV PRN (16:06)
[2020-04-09] MEDS ORDERED: LABETALOL HCL IV 5 MG/ML 20ML IV PRN (16:06)
[2020-04-09] MEDS ORDERED: ePHEDrine sulfate 50 MG/ML AMP IV PRN (16:06)
[2020-04-09] MEDS ORDERED: ONDANSETRON INJ 2 MG/ML 2 ML VIAL IV PRN ×2 (16:06→21:03)
[2020-04-09] MEDS ORDERED: ceFAZolin 2,000 MG/15 ML IV PUSH IV ONE (16:06)
[2020-04-09] MEDS ORDERED: ATROPINE SULFATE 0.1 MG/ML 10ML SYR IV PRN (16:06)
[2020-04-09] MEDS ORDERED: fentaNYL citrate 100 MCG/2 ML VIAL IV PRN (16:06)
[2020-04-09] MEDS ORDERED: PHENYLEPHRINE 100MCG/ML 5ML SYR IV PRN (16:06)
--- NOTE | 2020-04-09 16:06 | Orthopedic Progress Note ---
Date of Service April 08, 2020 Assessment & Plan (1) Closed fracture of head of right humerus: Currently, the patient's INR is still too high for surgery. I discussed this with Dr. Bloom. Plan for the patient to eat today and continue to have medicine service to bring INR down to 1.5 or less. Plan for surgery tomorrow afternoon. I discussed this with the patient and she is very understandable. Dr. Villagran will see the patient today to discuss surgery. Admission and Anticipated Discharge Date Admission Date: April 07, 2020 Subjective Patient states that she when she tries to move the shoulder it is very painful.Patient sitting up in chair at the bedside. Right upper extremity elevated on multiple pillows. Pain is controlled at rest. No other complaints at this time. Physical Exam Physical Exam: Right shoulder with swelling. Tender on palpation. Neurovascular is intact. Cap refills less than 2 seconds. Good wrist and finger range of motion at this time. Results & Data ([facility]) Vital Signs (Past 12 Hours) Vital Signs Temp Pulse Pulse Resp BP Pulse Ox 04/09/20 15:43 37 C 91 H 16 176/81 H 92 04/09/20 15:28 36.7 C 94 H 21 151/85 H 95 04/09/20 11:39 37.1 C 79 17 112/67 91 04/09/20 08:00 80 04/09/20 07:22 37.5 C 85 17 149/81 H 91 04/09/20 04:21 147/69 H 90 (1) Closed fracture of head of right humerus Encounter type: initial encounter Qualified Code(s): S42.291A - Other displaced fracture of upper end of right humerus, initial encounter for closed fracture
[2020-04-09] MEDS ORDERED: PHENYLEPHRINE 100MCG/ML 5ML SYR ONE (18:06)
[2020-04-09] MEDS ORDERED: SUCCINYLCHOLINE CHLORIDE 20 MG/ML 10 ML VIAL IV ONE (18:06)
[2020-04-09] MEDS ORDERED: ROCURONIUM BROMIDE 10 MG/ML 5 ML VIAL IV ONE (18:06)
[2020-04-09] MEDS ORDERED: ONDANSETRON INJ 2 MG/ML 2 ML VIAL ONE (18:06)
[2020-04-09] MEDS ORDERED: PROPOFOL IV EMULSION 10 MG/ML 20 ML VIAL IV ONE (18:06)
[2020-04-09] MEDS ORDERED: PHENYLEPHRINE HCL 10 MG/ML VIAL ONE (18:06)
[2020-04-09] MEDS ORDERED: LIDOCAINE HCL 2% 2 ML VIAL/AMP(20MG/ML) INFIL ONE (18:06)
[2020-04-09] MEDS ORDERED: ePHEDrine sulfate 50 MG/ML SYR ONE (18:06)
[2020-04-09] MEDS ORDERED: EPINEPHrine INJ 1 MG/ML AMP ONE (18:27)
[2020-04-09] MEDS ORDERED: EPINEPHrine HCL INJ 1 MG/ML 30ML ONE (18:27)
[2020-04-09] MEDS ORDERED: GLYCOPYRROLATE 0.2 MG/ML VIAL ONE (19:03)
[2020-04-09] MEDS ORDERED: NEOSTIGMINE METHYLSULFATE 5 MG/5 ML SYR ONE (19:03)
--- NOTE | 2020-04-09 19:29 | Post Operative Brief Note ---
Immediate Post Op Note v1 Date of Surgery April 09, 2020 Pre & Post Diagnosis Operation Date: 04/08/20 07:00 <No data on this case meets the specified criteria> Operation Date: 04/09/20 07:00 Pre-Op Diagnosis: Right proximal comminuted displaced humerus Fracture Post-Op Diagnosis: Same I identified the patient and participated in the time-out.: Yes Procedure Operation Date: 04/08/20 07:00 <No data on this case meets the specified criteria> Operation Date: 04/09/20 07:00 Actual Procedures p Right Reverse Total Shoulder Arthroplasty(Right), repair and bone grafting of tuberosities with humeral head autograft- Bartolome Villagran MD Surgeon Bartolome Villagran MD Healthcare Interpreter [facility] Estimated Blood Loss 200 Findings Consistent with Post-Op Diagnosis Specimens None Drains Jason Catheter (16 fr jason catheter inserted by YVETTE [place] without difficult y, clear yellow urine for return) and Hemovac Drain Anesthesia Type General Regional Complications none Disposition Accompanied Patient To Recovery: No Disposition: Recovery Room Overlapping Procedure I was immediately available: during the entire case.
--- NOTE | 2020-04-09 20:51 | Anesthesiology Progress Note ---
Date of Service April 09, 2020 Anesthesia Post Procedure Vital Signs Vital Signs: Temp Pulse Pulse Pulse Resp BP Pulse Ox 04/09/20 20:25 37.4 C 68 20 167/97 H 96 04/09/20 20:15 77 18 170/64 H 93 04/09/20 20:05 72 20 138/92 96 04/09/20 19:55 71 18 168/68 H 97 04/09/20 19:47 36.3 C L 74 16 168/54 H 96 04/09/20 15:43 37 C 91 H 16 176/81 H 92 04/09/20 15:28 36.7 C 94 H 21 151/85 H 95 04/09/20 11:39 37.1 C 79 17 112/67 91 04/09/20 08:00 80 04/09/20 07:22 37.5 C 85 17 149/81 H 91 04/09/20 04:21 147/69 H 90 04/09/20 00:55 37.5 C 93 H 135/76 94 Pain Intensity Right Shoulder: Pain Intensity: 1 Transfer of Care Handoff Completed per policy Notes Mental Status: alert / awake / arousable Patient Amnestic to Procedure: Yes Nausea / Vomiting: adequately controlled Pain: adequately controlled Airway Patency, RR, SpO2: stable & adequate BP & HR: stable & adequate Hydration State: stable & adequate Anesthetic Complications: no major complications apparent and Pt Satisfied with anesthetic care Notes: The patient is awake and comfortable. Her vital signs are stable.
[2020-04-09] MEDS ORDERED: METOCLOPRAMIDE HCL INJ 5 MG/ML 2 ML VIAL IV PRN (21:03)
[2020-04-09] MEDS ORDERED: NALOXONE HCL 0.4 MG/1 ML VIAL/CARP IV PRN (21:03)
[2020-04-09] MEDS ORDERED: bisacodyL 10 MG SUPP PR PRN (21:03)
[2020-04-09] MEDS ORDERED: MAGNESIUM HYDROXIDE SUSP 30 ML UDC PO PRN (21:03)
[2020-04-09] MEDS: DOCUSATE SODIUM 100 MG CAP PO SCH (21:59)
[2020-04-09] MEDS: nitrofurantoin macrocrystaL 50 MG CAP PO SCH (21:59)
[2020-04-09] MEDS: SENNA 8.6 MG TAB PO SCH (21:59)
[2020-04-09] MEDS: SODIUM CHLORIDE 0.9% 1000ML 1,000 ML IV SCH (21:59)
[2020-04-09] MEDS ORDERED: Nursing to Pharmacy Communication SCH (23:15)
[2020-04-09] MEDS: ceFAZolin 2000MG 2,000 MG/15 ML SYR IV SCH (23:55)
--- NOTE | 2020-04-10 02:07 | Operative Report (OR) ---
DATE OF OPERATION: 04/09/2020 INDICATION FOR PROCEDURE: The patient is an 84-year-old female who sustained a fall and sustained a closed right proximal humerus fracture with valgus impaction, head split and displaced greater tuberosity, lesser tuberosity, fractures with comminution. There is valgus impaction and displacement. PREOPERATIVE DIAGNOSIS: Comminuted right proximal humerus fracture with angulation and displacement. POSTOPERATIVE DIAGNOSIS: Comminuted right proximal humerus fracture with angulation and displacement. PROCEDURE: Right shoulder reverse total shoulder arthroplasty, biceps tenodesis, repair and bone grafting of the tuberosities using humeral head autograft. SURGEON: Bartolome Villagran MD LOSS PREVENTION DETECTIVE: Chevy Hall PA-C. ANESTHESIA: Regional block and general. ESTIMATED BLOOD LOSS: 200 mL. COMPLICATIONS: None. SPECIMENS: None. DRAINS: Two Hemovac. OPERATIVE PROCEDURE: The patient was anesthetized under general anesthetic and regional block anesthetic. She was placed on a 30-degree beachchair position on the operating room table with a towel roll in the medial border of the right scapula and she was translated to the right side of the bed, so her shoulder and arm could be manipulated off the bed as necessary. She had a foam headrest, protective eyewear. All extremities were well padded. Right shoulder exam demonstrates she had an obese shoulder and obese arm and crepitation consistent with a comminuted fracture. Right shoulder was sterilely prepped and draped with ChloraPrep. An anterior deltopectoral approach was performed. A bit longer than typical incision was made due to the obesity. Skin was incised sharply. Deep fat was divided down to the fascia and subcutaneous bleeders were cauterized. The cephalic vein was dissected out and retracted laterally with the deltoid and pectoralis was retracted medially. The upper centimeter of the pectoralis was released for inferior exposure. Biceps tendon was identified and had tendinopathy and tenosynovitis and there was hematoma from the fracture and evidence of acute injury. Biceps tendon sheath was opened up, up into the bicipital groove to identify the bone fragments. Dissection was taken down along the biceps tendon down to the glenoid. First, the biceps was tenodesed to the pectoralis tendon using [id number] #2 FiberWire sutures. Biceps tendon was then released proximal to the tenodesis and the lesser tuberosity fracture fragment was a comminuted fracture with the lesser tuberosity still being attached to the subscapularis tendon with a large piece and part of the piece extended into the other side of the bicipital groove, which was still attached to the lesser tuberosity. I osteotomized this with an artist chisel to remove the bone fragment and save the lesser tuberosity fragment with the subscapularis tendon and placed #1 Vicryl traction suture through the subscapularis tendon. Then this was retracted anteriorly and the humeral head was identified with split fracture. The posterior part of the head was still attached to the greater tuberosity fragment, which was split between the superior and inferior aspects. The supraspinatus was torn off proximally. The infraspinatus was attached to the large greater tuberosity fragment and the teres minor was attached to a smaller flake-like, but substantial fragment inferiorly. The damaged supraspinatus tendon was resected. A #1 Vicryl traction suture was placed through the infraspinatus tendon and teres minor tendon. The osteotomy of the humeral head fragment from the greater tuberosity fragment was performed posteriorly leaving a large greater tuberosity fragment attached to the rotator cuff. Humeral head fragment was removed and saved for bone graft. The larger humeral head fragment was removed and bone graft was harvested for the Tornier fracture stem using the harvesting device. Remainder of the cancellous bone graft was ground up with a rongeur for bone grafting tuberosities. At this time, the glenoid was exposed. There was no arthritis in the glenoid. The labrum was resected and an anterior inferior and posterior inferior capsular release was performed with electrocautery on bone and a Rodriguez elevator. The triceps tendon was released. This gave excellent exposure to the glenoid. The articular cartilage was curetted off to get the true version of the glenoid, placed the guide for the glenoid about 10-degree inferior tilt and drilled the central peg for the reamer. The reamer for the 25 mm baseplate was used. A central hole was widened. The 28 hydroxyapatite coated 25 mm Aequalis baseplate was impacted into position after irrigation of the bone with antibiotic solution with bacitracin. The baseplate had excellent fixation. Anterior, posterior and superior and inferior screws were placed, 18 and 29 and 38 and 20 respectively with the superior and inferior screws being locking screws. The fan reamer was used for the 36 glenoid sphere and after irrigation with antibiotic solution, the 36 x 25 standard glenoid sphere was impacted in position and each screw was tightened. It was checked to be stable and then attention was taken to the humeral preparation. The canal was irrigated out and used a canal reamer to document a 7 mm stem was appropriate distal width and then the 7 mm trial was placed at 20 degrees of retroversion and impacted in position. The height was documented. Trial reduction with a +6 36 mm insert gave no shuck and good stability. The trials were removed and the drill hole in the shaft was made to place two #5 FiberWire sutures through the shaft for repair of the tuberosities to the shaft. The sutures were docked and then the cement restrictor was placed at the appropriate depth and then 4 #5 FiberWires were placed around the greater tuberosity. The canal was irrigated and epinephrine soaked sponge was placed into the canal. The [place] G cement was vacuum mixed and then the Tornier size 7 fracture stem. After placement of the bone graft into the slot was cemented into position, held until cement cured and then bone grafted around the proximal aspect between the shaft and the prosthetic. The sutures were passed around the neck of the implant and the polyethylene liner 36+6 was impacted securely and then the humerus was reduced to the glenoid. After copious irrigation, the bone graft was placed between the humeral proximal shaft and the prosthetic and bone plug in the prosthesis. Then first the greater tuberosity was repaired to this around the stem using the 2 of the #5 FiberWire sutures repairing the tuberosity anatomically to the prosthetic. Mobility and stability was assessed to be satisfactory and then after bone grafting anteriorly between the prosthetic shaft and the lesser tuberosity, lesser tuberosity was repaired by placing the 2 other #5 FiberWire sutures around the lesser tuberosity and lesser tuberosity was repaired to the prosthetic and to the greater tuberosity. Then the 2 shaft sutures were placed in [id number] fashion to repair the tuberosities to the shaft and the Vicryl sutures were tied to each other reinforcing the tuberosity repair. The arm was taken through range of motion and there was 0-120 degrees of flexion, 50 degrees of external and internal rotation with good stability and no tension on the repair. The pectoralis was repaired with [id number] #2 FiberWire sutures. Two Hemovac drains were placed. The deltopectoral interval was repaired with interrupted [id number] #1 Vicryl sutures and subcutaneous tissues were closed with 2-0 Vicryl sutures, skin closed with adriana. Sterile dressings were applied and the patient tolerated the procedure well. Chevy Hall is my teachers' assistant. He functioned as teachers' assistant throughout the entire procedure and helped in arm positioning, prepping, draping, soft tissue retraction, closed the subcutaneous and skin and will participate in postoperative care of the patient. I attest to the content of the Intraoperative Record and any orders documented therein. Any exception s are noted below.
[2020-04-10] MEDS: oxyCODONE HCL IR 5 MG TAB (IMMEDIATE RELEASE) PO PRN ×2 (03:08→12:36)
[2020-04-10] MEDS: MoRPHine SULFATE 2 MG/ML CARP IV PRN ×2 (04:03→08:31)
[2020-04-10] MEDS: SODIUM CHLORIDE 0.9% 1000ML 1,000 ML IV SCH (05:25)
[2020-04-10] MEDS: LEVOTHYROXINE SODIUM 137 MCG TABLET PO SCH (05:26)
[2020-04-10 06:13] LABS: Basophils # (auto) 0.02 K/uL (0-0.2); Basophils % (auto) 0.2 %; Eosinophils # (auto) 0.18 K/uL (0-0.5); Eosinophils % (auto) 1.7 %; Hematocrit (blood only) 29.3 % (37-47); Hemoglobin 9.4 g/dL (12.0-16.0); Immature Granulocytes # (auto) 0.01 K/uL (0.00-0.02); Immature Granulocytes % (auto) 0.1 %; Lymphocytes # (auto) 1.37 K/uL (1.2-3.4); Lymphocytes % (auto) 13.2 %; Mean Corpuscular Hemoglobin 29.4 pg (25-34); Mean Corpuscular Hgb Conc 32.1 g/dL (32-36); Mean Corpuscular Volume 91.6 fL (80-100); Mean Platelet Volume 9.5 fL (7.4-10.4); Monocytes # (auto) 0.76 K/uL (0.11-0.59); Monocytes % (auto) 7.4 %; Neutrophils % (auto) 77.4 %; Platelet Count 209 K/uL (130-400); RDW Coefficient of Variation 15.7 % (11.5-14.5); RDW Standard Deviation 52.6 fL (36.4-46.3); White Blood Count 10.34 K/uL (4.8-10.8)
[2020-04-10 06:34] LABS: BUN Creatinine Ratio 20.3 (10-20); Creatinine Clr Calc Pharmacy 39.8 ml/min; Est GFR (African American) 54.6; Est GFR (Non-African American) 47.1; Potassium 4.4 mmol/L (3.5-5.1)
--- NOTE | 2020-04-10 07:51 | XRay Report ---
XR shoulder RT min 2V routine CLINICAL HISTORY: Post shoulder surgery COMPARISON: Right shoulder radiographs and CT of the right shoulder April 07, 2020. FINDINGS: Alignment of the right shoulder arthroplasty is anatomic anatomic. There are surgical drai ns and skin adriana. Expected post surgical findings are noted. The right humeral fracture which was shown on previous exam is noted. IMPRESSION: Expected findings following right shoulder arthroplasty. ACT 112: Negative or not required by law. Electronically signed by: Jamie Hernandez M.D. 04/10/2020 7:49 AM
[2020-04-10] MEDS ORDERED: INSULIN HUMAN NPH SC ONE (08:00)
[2020-04-10] MEDS: ceFAZolin 2000MG 2,000 MG/15 ML SYR IV SCH (08:30)
[2020-04-10] MEDS: carvediloL 6.25 MG TAB PO SCH ×2 (08:31→21:31)
[2020-04-10] MEDS: DOCUSATE SODIUM 100 MG CAP PO SCH ×2 (08:31→21:31)
[2020-04-10] MEDS: MULTIVITAMIN TAB PO SCH (08:31)
[2020-04-10] MEDS: PANTOprazole 40 MG TAB PO SCH (08:32)
[2020-04-10] MEDS: lisinopril 2.5 MG TAB PO SCH (08:32)
[2020-04-10] MEDS: amLODIPine BESYLATE 5 MG TAB PO SCH (08:32)
[2020-04-10] MEDS: LOVASTATIN 20 MG TAB PO SCH (08:32)
[2020-04-10] MEDS: allopurinoL 100 MG TAB PO SCH (08:32)
[2020-04-10] MEDS: INSULIN ASPART 100 UNITS/ML 3 ML PEN SC SCH ×4 (08:33→21:31)
--- NOTE | 2020-04-10 09:08 | Orthopedic Progress Note ---
Date of Service April 10, 2020 Assessment & Plan (1) Closed fracture of head of right humerus: POD 1 s/p Right Reverse TSA Acute Blood Loss Anemia - secondary to fracture and surgery. Follow H/H. PT/OT - NWB RUE. Minimal exercises at this time. Pendulums/shoulder shrugs/wrist and elbow ROM. Sling on at all times except for bathing and dresssing. DVT prophylaxis - Resume Coumadin today if ok with Med Service Pain management as written DC planning - Planning for services upon dc Admission and Anticipated Discharge Date Admission Date: April 07, 2020 Subjective POD 1 Pt sitting up in bed. Just recieved some pain medication. Sleeping but easily awoken. States she's having some pain this AM. No other complaints. Denies SOB,CP,LH. Physical Exam Physical Exam: Dressings C/D/I. CMS intact. Moving fingers/wrist well. Slight tingling in fingers this AM which is felt to be positional. Discussed putting the arm in different positions to help alleviate. Sling in place. HV with 30 ml from previous shift. Results & Data ([facility]) Vital Signs (Past 12 Hours) Vital Signs Temp Pulse Pulse Pulse Resp BP Pulse Ox 04/10/20 08:13 36.3 C L 62 20 179/54 H 96 04/10/20 03:00 36.7 C 92 H 18 145/82 H 96 04/10/20 00:00 93 H 04/09/20 23:36 38.2 C H 101 H 20 139/80 93 04/09/20 22:33 92 H 150/80 H 94 04/09/20 21:33 82 157/71 H 95 04/09/20 21:14 71 164/80 H 98 Laboratory Results Laboratory Results WBC 10.34 K/uL (4.8-10.8) 04/10/20 05:46 RBC 3.20 M/uL (4.2-5.4) L 04/10/20 05:46 Hgb 9.4 g/dL (12.0-16.0) L 04/10/20 05:46 Hct 29.3 % (37-47) L 04/10/20 05:46 MCV 91.6 fL (80-100) 04/10/20 05:46 MCH 29.4 pg (25-34) 04/10/20 05:46 MCHC 32.1 g/dL (32-36) 04/10/20 05:46 RDW Std Deviation 52.6 fL (36.4-46.3) H 04/10/20 05:46 RDW Coeff of Lotus 15.7 % (11.5-14.5) H 04/10/20 05:46 Plt Count 209 K/uL (130-400) 04/10/20 05:46 MPV 9.5 fL (7.4-10.4) 04/10/20 05:46 Immature Gran % (Auto) 0.1 % 04/10/20 05:46 Neut % (Auto) 77.4 % 04/10/20 05:46 Lymph % (Auto) 13.2 % 04/10/20 05:46 [place] % (Auto) 7.4 % 04/10/20 05:46 Eos % (Auto) 1.7 % 04/10/20 05:46 Baso % (Auto) 0.2 % 04/10/20 05:46 Neut # (Auto) 8.00 K/uL (1.4-6.5) H 04/10/20 05:46 Lymph # (Auto) 1.37 K/uL (1.2-3.4) 04/10/20 05:46 [place] # (Auto) 0.76 K/uL (0.11-0.59) H 04/10/20 05:46 Eos # (Auto) 0.18 K/uL (0-0.5) 04/10/20 05:46 Baso # (Auto) 0.02 K/uL (0-0.2) 04/10/20 05:46 Immature Gran # (Auto) 0.01 K/uL (0.00-0.02) 04/10/20 05:46 PT 12.1 Seconds (9.0-12.0) H 04/09/20 08:53 INR 1.2 (0.9-1.1) H 04/09/20 08:53 Sodium 137 mmol/L (136-145) 04/10/20 05:46 Potassium 4.4 mmol/L (3.5-5.1) 04/10/20 05:46 Chloride 106 mmol/L (98-107) 04/10/20 05:46 Carbon Dioxide 26 mmol/L (21-32) 04/10/20 05:46 Anion Gap 5.0 (3-11) 04/10/20 05:46 BUN 22 mg/dl (7-18) H 04/10/20 05:46 Creatinine 1.08 mg/dl (0.6-1.2) 04/10/20 05:46 Est Cr Clr Drug Dosing 39.8 ml/min 04/10/20 05:46 Est GFR ( Amer) 54.6 04/10/20 05:46 Est GFR (Non-Af Amer) 47.1 04/10/20 05:46 BUN/Creatinine Ratio 20.3 (10-20) H 04/10/20 05:46 Glucose 167 mg/dl (70-99) H 04/10/20 05:46 POC Glucose 177 mg/dl (70-99) H 04/10/20 07:25 Estimat Average Glucose 166 mg/dl 04/08/20 04:12 Hemoglobin A1c 7.4 % (4.5-5.6) H 04/08/20 04:12 Calcium 8.0 mg/dl (8.5-10.1) L 04/10/20 05:46 Phosphorus 2.7 mg/dl (2.5-4.9) 04/07/20 16:39 Magnesium 1.8 mg/dl (1.8-2.4) 04/09/20 08:53 Total Bilirubin 0.6 mg/dl (0.2-1) 04/07/20 12:43 AST 23 U/L (15-37) 04/07/20 12:43 ALT 30 U/L (12-78) 04/07/20 12:43 Alkaline Phosphatase 84 U/L (45-117) 04/07/20 12:43 Troponin I 0.073 ng/ml (0-0.045) H* 04/08/20 10:41 Total Protein 7.4 gm/dl (6.4-8.2) 04/07/20 12:43 Albumin 3.6 gm/dl (3.4-5.0) 04/07/20 12:43 Globulin 3.8 gm/dl (2.5-4.0) 04/07/20 12:43 Albumin/Globulin Ratio 0.9 (0.9-2) 04/07/20 12:43 TSH 2.880 uIu/ml (0.300-4.500) 04/07/20 16:39 COVID-19 Eval Order Covid19 [facility]Now [facility] 04/09/20 10:18 SARS-CoV-2 RNA (RT-PCR) Cancelled 04/08/20 20:20 SARS-CoV-2, RNA, NAAT NEGATIVE (NEGATIVE) 04/09/20 10:18 SARS-CoV-2 Ag (Rapid) Negative (Negative) 04/07/20 15:05 Blood Type A Negative 04/08/20 16:10 Antibody Screen NEGATIVE 04/08/20 16:10 (1) Closed fracture of head of right humerus Encounter type: initial encounter Qualified Code(s): S42.291A - Other displaced fracture of upper end of right humerus, initial encounter for closed fracture
--- NOTE | 2020-04-10 13:48 | Pharmacy Report ---
Glycemic Control Progress Note - Date of Service April 10, 2020 - Scope Glycemic Pharmacist consulted for glycemic control to write orders per [facility] inpatient glycemic control protocol. - Objective Accuchecks BSG(last 24 hours):: 04/09/20 04/09/20 04/10/20 20:27 21:03 00:31 Glucose POC Glucose 126 H 121 H 157 H 04/10/20 04/10/20 04/10/20 05:46 07:25 11:42 Glucose 167 H POC Glucose 177 H 211 H HbA1c:: Hemoglobin A1c 7.4 % (4.5-5.6) H 04/08/20 04:12 - Recent Pertinent Medications The patient is currently receiving: * Basal insulin: NPH 15 units in the morning * Correctional Insulin: Novolog Correction per scale ACHS Goal Range: Low 140 mg/dL - High 180 mg/dL Correction Factor: 20 mg/dL/unit * Prandial insulin: Per carb ratio of 1 unit per 6 grams CHO consumed - Outpatient Anti-Diabetic Meds Novolin 70/30 - 45 - 50 units BID - Assessment & Plan ASSESSMENT: * See progress note from 04/08/20 for more background info, in short: * Pt receiving SQ basal bolus insulin regimen for hyperglycemia secondary to baseline DM (outpatient regimen on hold). * Patient is currently receiving an average of 15 units of insulin per day * 15 units of basal insulin * 0 units of prandial/correctional insulin * BSGs ranging 126 - 169 mg/dl over the past 24hrs * Changes needed to insulin regimen: * AM Fasting BSG = 177 mg/dl. This is slightly above goal range for patient based on inpatient targets and co-morbidities. Patient was NPO yesterday for shoulder surgery. It appears that true basal needs is around ~25 units/day when not eating. Will start with NPH 20 units BIDM since diet ordered and patient only received 15 units yesterday (late surgery). * Post-prandial BSGs were controlled. Have not had much testing of current CF/CR since patient has been NPO for some time. * Total daily dose is TBD. PLAN FOR INPATIENT GLYCEMIC CONTROL: * STARTING NPH 20 units SQ BIDM * Continuing correction factor of 20 mg/dl/unit * Continuing carb ratio of 1 unit per 6 grams CHO consumed * Continuing goal range of Low 110 mg/dL - High 140 mg/dL RECOMMENDATIONS FOR DISCHARGE: * Patient's HbA1C reasonably controlled for age and co-morbidities. * Recommend continuing outpatient regimen as long as patient does not have any hypoglycemia. Thank you.
--- NOTE | 2020-04-10 16:29 | Hospitalist Progress Note ---
Date of Service April 10, 2020 Assessment & Plan (1) Closed fracture of head of right humerus: s/p reverse surgical repair 04/09 has acute blood loss anemia but is stable (2) Elevated troponin: Patient has asymptomatic elevation of her troponin. She did have a small run of V. tach in the ER associated with hypomagnesemia. She is seen by Dr. Renee with the following recommendations Elevated troponin: Her troponin is minimally elevated and is not diagnostic of myocardial infarction. She did not present with acute coronary syndrome. She denies any ischemic symptoms. In the absence of symptoms, and the necessity of upcoming surgery, ischemic evaluation is not necessary at this time. Near syncope: She denies full loss of consciousness. Likely related to vertigo as she has been having vertigo for 4 days. To further investigate for arrhythmia, 30 day MCOT is being requested from the cardiology office if she is not noted to have any significant arrhythmia while hospitalized. Left bundle-branch block: Chronic. Echo 04/08, normal EF no significant valvular abnormalities . Preop cardiac assessment: "She is typically able to ambulate throughout her house without anginal symptoms. She is acceptable risk for right upper extremity surgery." (3) Hypertension: * Typically takes amlodipine and carvedilol at home these will be continued hydrochlorothiazide will be held (4) Left bundle-branch block: * Appears unchanged from prior EKGs. (5) detention (current) use of anticoagulants: Patient states she is on long-term anticoagulation of Coumadin for strokes. Patient's INR was elevated on presentation she was givenvitamin K will start coumadin in pm or 04/10 with daily INR, she states her coumadin was for history of CVA (6) Chronic kidney disease, stage 3: (7) Vertigo: Admission and Anticipated Discharge Date Admission Date: April 07, 2020 Subjective pt is slightly sedate from pain medicine, she is without other significant complaints Review of Systems Review of Systems: Mild distress and fatigue worsening pain with movement of her arm no headache, blurry or double vision no speech or swallowing issues no chest pain, pressure or palpitations no shortness of breath, cough or wheezes no abdominal pain, nausea or vomiting, diarrhea or constipation no dysuria, hematuria or frequency Right shoulder very painful to movement no back pain, CVA tenderness or radicular pain no bruising, bleeding or rashes no focal signs of weakness or numbness or altered sensation no complaints of anxiety or depression.. Physical Exam Physical Exam: The patient appeared well nourished and normally developed. Vital signs as documented. Head exam is normocephalic atraumatic no scleral icterus Neck is without JVD, thyromegaly, or carotid bruits. Lungs are clear to auscultation, no focal loss of breath sounds Cardiac exam, Rhythm is regular.. Mild systolic murmur is heard no further arrhythmias noted Abdominal exam reveals normal bowel sounds, soft non tender, no masses Right shoulder is tender to movement she is her arm braced up on her abdomen Neurologic exam is alert and oriented, no focal loss of strength or sensation Skin is without bruises or rashes Psychologically is without concerns for anxiety or depression. Results & Data Results & Data ([facility] [place]) Vital Signs (Past 12 Hours) Vital Signs Temp Pulse Pulse Pulse Resp BP Pulse Ox 04/10/20 15:39 99.1 F 84 16 130/75 95 04/10/20 12:00 99.0 F 90 20 118/66 91 04/10/20 08:30 84 04/10/20 08:13 97.3 F L 62 20 179/54 H 96 PG Care Time/CCT Total # of Minutes Spent Total Time Spent with Patient: Total time spent is greater than 50% in coordination of care (as documented) at patient's floor/unit and/or counseling patient: Coding Level of Care Code 78867 Subseq Hosp Care Lvl 3 Diagnoses Closed fracture of head of right humerus S42.291A Encounter type: initial encounter Elevated troponin R77.8 Hypertension I10 Left bundle-branch block I44.7 manager terminal (current) use of anticoagulants Z79.01 Chronic kidney disease, stage 3 N18.3 Vertigo R42 (1) Closed fracture of head of right humerus Encounter type: initial encounter Qualified Code(s): S42.291A - Other displaced fracture of upper end of right humerus, initial encounter for closed fracture
[2020-04-10] MEDS: INSULIN HUMAN NPH SC SCH (18:30)
[2020-04-10] MEDS: SENNA 8.6 MG TAB PO SCH (21:31)
[2020-04-10] MEDS: nitrofurantoin macrocrystaL 50 MG CAP PO SCH (21:31)
[2020-04-10] MEDS: MECLIZINE 12.5 MG TAB PO SCH (21:31)
[2020-04-11] MEDS: oxyCODONE HCL IR 5 MG TAB (IMMEDIATE RELEASE) PO PRN (00:34)
[2020-04-11] MEDS: LEVOTHYROXINE SODIUM 137 MCG TABLET PO SCH (06:14)
[2020-04-11 07:10] LABS: BUN Creatinine Ratio 18.4 (10-20); Calcium 8.3 mg/dl (8.5-10.1); Creatinine Clr Calc Pharmacy 36.7 ml/min; Est GFR (African American) 49.6; Est GFR (Non-African American) 42.8; Potassium 3.9 mmol/L (3.5-5.1)
--- NOTE | 2020-04-11 07:50 | Orthopedic Progress Note ---
Date of Service April 11, 2020 Assessment & Plan (1) Closed fracture of head of right humerus: s/p reversed TSA and repair tuberosities pod #2. postop anemia. medical issues. pt ot per protocol and medical management , placement or dc home when medically stable. Admission and Anticipated Discharge Date Admission Date: April 07, 2020 Subjective shoulder sore no major pain unless moves arm Review of Systems Review of Systems: had some decreased o2 sat when deep sleep and some hypertension Physical Exam Physical Exam: dressing changed and drain pulled . incision benign without erythema. no ecchymosis no drainage. dry sterile dressing applied.CSM exam normal and intact. Results & Data ([facility]) Vital Signs (Past 12 Hours) Vital Signs Temp Pulse Pulse Resp BP Pulse Ox 04/11/20 07:36 96 04/11/20 07:32 37.3 C 83 14 147/72 H 80 L 04/11/20 00:30 37.7 C H 95 H 18 185/80 H 96 04/10/20 21:28 94 H 159/75 H (1) Closed fracture of head of right humerus Encounter type: initial encounter Qualified Code(s): S42.291A - Other displaced fracture of upper end of right humerus, initial encounter for closed fracture
[2020-04-11] MEDS: DOCUSATE SODIUM 100 MG CAP PO SCH (09:10)
[2020-04-11] MEDS: MULTIVITAMIN TAB PO SCH (09:10)
[2020-04-11] MEDS: PANTOprazole 40 MG TAB PO SCH (09:10)
[2020-04-11] MEDS: allopurinoL 100 MG TAB PO SCH (09:10)
[2020-04-11] MEDS: lisinopril 2.5 MG TAB PO SCH (09:10)
[2020-04-11] MEDS: MECLIZINE 12.5 MG TAB PO SCH (09:11)
[2020-04-11] MEDS: LOVASTATIN 20 MG TAB PO SCH (09:11)
[2020-04-11] MEDS: carvediloL 6.25 MG TAB PO SCH (09:11)
[2020-04-11] MEDS: amLODIPine BESYLATE 5 MG TAB PO SCH (09:12)
[2020-04-11] MEDS: INSULIN ASPART 100 UNITS/ML 3 ML PEN SC SCH ×2 (09:16→13:32)
[2020-04-11] MEDS: INSULIN HUMAN NPH SC SCH (09:17)
--- NOTE | 2020-04-11 19:16 | Discharge Summary ---
Date of Service April 11, 2020 Admission HPI Per Admitting Provider Patient is an 84-year-old female with a significant past medical history of CVA anticoagulated on Coumadin, insulin-dependent diabetes, chronic left bundle branch block, hypothyroidism, hypertension, hyperlipidemia, CKD 3. Patient lives at home independently and does have help with ADLs from her adult children. 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 Daughter reports that she is very particular with her clientele and wears a mask as well as facial during each interaction. She encourages all of her clients to wear facemasks as well. To her knowledge, she has had no recent COVID-19 positive contacts. Patient unfortunately has been experiencing vertiginous-like symptoms with spinning sensation which is been worse with changes in position. She reports that these episodes quickly resolve and she is able to continue on without issue. She reports that symptoms are mostly brought on by changes in position as well as turning her head quickly. She had been performing exercises with her daughter with some relief of symptoms. Earlier today, while performing her morning duties, she reports that she was walking through her kitchen when she threw a trash away and reports feeling as a sensation that she was going to pass out. Her daughter was able to catch her head so she did not strike her head. She reports remembering the events before and after. There was no postictal state. Patient was initially taken to an outpatient clinic where he was directed to the emergency department with imaging capabilities. Upon evaluation in the emergency department, the patient is awake, alert, and oriented. She reports that she is having moderate pain with attempted movement of the RIGHT shoulder. She reports remember the entire event from today other than when she passed out. Patient denies any presyncope chest pain, palpitations, shortness of breath, nausea, or diaphoresis. Presently, the patient offers no complaints other than right shoulder pain. Principal Diagnosis humerus fracture presumed anastacio Discharge Exam gen aaox3 pleasant nad heent nc at mmm lungs cta b/l no rr//w good effort cardio reg no r/m/g neuro no focal deficits R arm in sling Discharge Data Allergies Allergy/AdvReac Type Severity Reaction Status Date / Time No Known Drug Allergies Allergy Verified 04/07/20 14:19 Consultations 04/07/20 14:43 Consult Orthopedic Surgery Stat 04/07/20 15:42 ED Decision to Admit Stat 04/07/20 15:43 Consult Cardiology Routine 04/07/20 16:04 Consult Orthopedic Surgery Stat 04/09/20 21:03 Consult Case Management - Discharge Planning Routine Procedures Performed Operation Date: 04/08/20 07:00 <No data on this case meets the specified criteria> Operation Date: 04/09/20 07:00 Actual Procedures p Right Reverse Total Shoulder Arthroplasty(Right) - Bartolome Villagran MD Ordered Studies 04/07/20 12:31 CT head/brain wo con Stat 04/07/20 14:59 CT shoulder RT wo con Stat 04/09/20 16:06 US - OR guided needle placemen Routine Hospital Course (1) Closed fracture of head of right humerus: s/p reverse surgical repair 04/09 has acute blood loss anemia but is stable now stable for home w family / home PT (2) Elevated troponin: Patient has asymptomatic elevation of her troponin. She did have a small run of V. tach in the ER associated with hypomagnesemia. She is seen by Dr. Renee with the following recommendations Elevated troponin: Her troponin is minimally elevated and is not diagnostic of myocardial infarction. She did not present with acute coronary syndrome. She denies any ischemic symptoms. In the absence of symptoms, and the necessity of upcoming surgery, ischemic evaluation is not necessary at this time. Near syncope: She denies full loss of consciousness. Likely related to vertigo as she has been having vertigo for 4 days. To further investigate for arrhythmia, 30 day MCOT is being requested from the cardiology office if she is not noted to have any significant arrhythmia while hospitalized. can be arranged as outpt Left bundle-branch block: Chronic. Echo 04/08, normal EF no significant valvular abnormalities . Preop cardiac assessment: "She is typically able to ambulate throughout her house without anginal symptoms. She is acceptable risk for right upper extremity surgery." (3) Hypertension: * home on home meds (4) Left bundle-branch block: * Appears unchanged from prior EKGs. (5) longterm (current) use of anticoagulants: coumadin, follow INR as outpt (6) Chronic kidney disease, stage 3: (7) Vertigo: Total Time Total Time Spent Total Time Spent (In Minutes): <30 Discharge Plan Discharge Items Patient Disposition: Home - Home Health Services Reason For Visit: SYNCOPE, NSTEMI, RIGHT HUMERUS FX Discharge Diagnosis: Right Proximal Humerus Fx Activity: Per Instructions section Weightbearing: Right non-weightbearing Weightbearing Comment: Sling at all times except bathing/changing clothes Non-emergency contact: Surgeon Call non-emergency contact if: your pain is not controlled, your temperature is above 101.5, your wound has increased redness and your wound has increased drainage Follow-up/Referrals: Devin Petty MD [Primary Care Provider] - Diet: Carb Consistent or DM2 Addtl Attending Provider Instructions: as far as pain control, take the oxycodone for the time being - we'll send a prescription for 5mg tabs. take 1 for moderate pain, 2 for severe. remember that medications like oxycodone can make you groggy/sedated and also constipated - so try to use it sparingly. as an alternative to the oxycodone, you could take 400mg ibuprofen (2 over the counter pills) up to every six hours instead. for more mild pain - you could use tylenol up to (but not more than) 2000mg in a day continue your coumadin at your current dosing - and then have an INR checked again on/around 04/13 and then as directed thereafter. Addtl Marketing Planning Manager Provider Instructions: ACTIVITY RECOMMENDATIONS: SELF CARE INSTRUCTIONS AFTER TOTAL SHOULDER ARTHROPLASTY REVERSE A. You may do daily exercises as taught in physical therapy while in hospital. No lifting with the operative arm. B. You are to wear your sling/immobilizer at all times EXCEPT when performing your daily exercises and for hygiene purposes. C. You may perform dry, daily dressing changes. Please keep your incision covered. You may shower 48 hours after surgery. Do not apply soap or any ointment/lotions directly over incision. Do not soak incision in bath tub/swimming pool. D. You may use ice as needed to operative shoulder. SPECIAL CARE INSTRUCTIONS: VERY IMPORTANT TO READ AND REVIEW A. There are a few signs you need to watch for after you are home. Call [facility] at [phone] if you experience any of the followin. Increased severe shoulder pain. Some pain is expected especially when you exercise. 2. Increased swelling in you shoulder or arm; pain or swelling in either upper extremity. 3. Any fluid drainage from the incision. 4. Shortness of breath or chest pain. B. Please call [facility] at [phone] if you have any questions or concerns about your operation or recovery. C. Call your physician if: 1. Temperature is greater than 101 degrees (F). 2. Pain is not relieved by prescribed pain medications. 3. Increase drainage or redness from incision. 4. Unanswered questions or concerns. FOLLOW UP VISIT: Please call [facility] at [phone] to schedule a follow up appointment with Dr. Villagran or his PA in 12-14 days from your surgery date. Pending Studies at Discharge: No Stand-Alone Forms: My [facility] Weft, Opioid Pain Management, Smoking Cessation Medications and DC Order Prescriptions: New oxycodone 5 mg capsule 5 mg PO Q6H PRN (Reason: pain) Qty: 14 RF: 0 Continued (DME) lancets [Zivix Lancets] 33 gauge misc See Dose Instructions .ROUTE .MEDSUPPLY Qty: 300 RF: 3 (DME) AFG MediaTouch Ultra Blue Test Strip strip See Dose Instructions .ROUTE .MEDSUPPLY Qty: 300 RF: 3 amlodipine 2.5 mg tablet 2.5 mg PO DAILY Qty: 90 RF: 3 allopurinol 100 mg tablet 100 mg PO DAILY Qty: 90 RF: 3 carvedilol 6.25 mg tablet 6.25 mg PO BID Qty: 180 RF: 3 clopidogrel 75 mg tablet 75 mg PO DAILY Qty: 90 RF: 3 lisinopril 2.5 mg tablet 2.5 mg PO DAILY Qty: 90 RF: 3 lovastatin 40 mg tablet 40 mg PO DAILY Qty: 90 RF: 3 nitrofurantoin macrocrystal 50 mg capsule 50 mg PO HS Qty: 90 RF: 0 omeprazole 20 mg capsule,delayed release(DR/EC) 20 mg PO DAILY Qty: 90 RF: 3 levothyroxine 137 mcg tablet 137 mcg PO .COMPLEX Qty: 90 RF: 3 hydrochlorothiazide 12.5 mg tablet 12.5 mg PO DAILY Qty: 90 RF: 3 (DME) lancing device with lancets [[employer] Lanc Device] kit See Dose Instructions .ROUTE .MEDSUPPLY Qty: 1 RF: 0 (DME) insulin syringe-needle U-100 [BD Insulin Syringe Ultra-Fine] 0.5 mL 31 gauge x 5/16" syringe See Dose Instructions .ROUTE .MEDSUPPLY Qty: 10 RF: 0 insulin NPH and regular human 100 unit/mL (70-30) suspension 45 - 50 unit subcut BID Qty: 6 RF: 0 warfarin [Jantoven] 5 mg tablet 5 mg PO UD RF: 0 Discharge Orders: Discharge Order (Routine); Ordered 04/11/20 Ordered By: Jim Andrade/Other Patient Handouts: Managing Type 2 Diabetes, After Reverse Total Shoulder ..., Reverse Total Shoulder Replacement Admission Data Admit Date/Time: 04/07/20 15:38 Attending Provider: Jim Urrutia Admit Provider: Obed Garcia Primary Care Provider: Devin Petty Other Providers: Hermelindo Vizcaino [facility] ; Obed Francisco ; Obed Garcia ; Torsten Reid ; Mukul Osborn ; Devin Ku ; Gerardo Case ; Clint Strickland ; Bacilio Yates Jr ; David Renee ; Genesis Dale ; Susan Subramanian ; Chapo Segundo ; Chapo Mitchell ; Donell Javed ; Kuldip Jo ; Za Cash ; Jeanne Gonzalez ; Bill Dominique ; Fredrick Trevino ; Lazaro Gilbert ; Hari Pettit Other Interventions: Discharge Summary Assessment (RN) Last Done: 04/11/20 14:00 Coding Level of Care Code D/C Day Management <30 mins Diagnoses Closed fracture of head of right humerus S42.291A Encounter type: initial encounter Elevated troponin R77.8 Hypertension I10 Left bundle-branch block I44.7 longterm (current) use of anticoagulants Z79.01 Chronic kidney disease, stage 3 N18.3 Vertigo R42
== END 2020-04-11 14:48 | disposition home health service (06) | DRG 483 ==
LOC: ED 12:05 → 2S 15:38 → SUATTDRO 15:38 → 2S 17:03 → 3W 04-10 15:30